=== PATIENT | male | born 1960 | race Caucasian/White ===

== ENCOUNTER 2017-07-12 02:12 | Inpatient (IN) | payer OTHER ==
[2017-07-12] VITALS (8 sets, daily range): BP systolic 87–179; BP diastolic 53–96
[~2017-07-12] VITALS: Ht 177.8 cm; Wt 68.9 kg
[2017-07-12] MEDS ORDERED: MORPHINE SULFATE 4 MG/ML CPJ (NOT FOR IM USE) IV STA (02:31)
[2017-07-12] MEDS ORDERED: SODIUM CHLORIDE 0.9% 1,000 ML IV ONE (02:31)
[2017-07-12] MEDS ORDERED: ONDANSETRON HCL 4MG/2ML VIAL IV STA ×2 (02:31)
[2017-07-12] MEDS ORDERED: ASPIRIN 81MG TABLET PO ONE (02:45)
[2017-07-12] MEDS ORDERED: MECLIZINE 25MG TABLET PO ONE (02:45)
[2017-07-12 02:57] LABS: HEMATOCRIT. 39.7 % (42.0-52.0); HEMOGLOBIN. 13.9 g/dL (14.0-18.0); MEAN CORPUSCULAR HEMOGLOBIN 28.7 pg (28.0-32.0); MEAN CORPUSCULAR VOLUME 82.4 fL (80.0-94.0); MEAN PLATELET VOLUME 8.1 fl (7.4-10.4); PLATELET 151 x1000/uL (130-400); RED BLOOD CELL COUNT 4.82 mill/uL (4.7-6.1); RED CELL DISTRIBUTION WIDTH 18.4 % (11.6-14.6)
[2017-07-12 03:05] LABS: INR 1.2; PARTIAL THROMBOPLASTIN TIME 26.7 sec (23.4-31.0); PROTHROMBIN TIME 12.4 sec (9.4-11.6)
[2017-07-12 03:18] LABS: CARBON DIOXIDE 16 mEq/L (21-32); CHLORIDE 74 mEq/L (98-107); ETHANOL BLOOD < 10 mg/dL; TROPONIN I < 0.02 ng/mL (0.00-0.04)
[2017-07-12] MEDS ORDERED: SODIUM CHLORIDE 0.9% 1000ML BAG (SEPSIS BOLUS) IV NR ×2 (03:45→05:00)
[2017-07-12] MEDS ORDERED: POTASSIUM BICARB/CIT ACID 25 MEQ TABLET.EFF PO NR (03:45)
[2017-07-12] MEDS ORDERED: KCL 20MEQ/100ML PREMIX 100 ML IV NR (03:45)
[2017-07-12] MEDS ORDERED: SODIUM CHLORIDE 0.9% 1,000 ML IV NR (04:04)
[2017-07-12] MEDS ORDERED: LEVOFLOXACIN 750MG PREMIX 150 ML IV NR (05:00)
[2017-07-12] MEDS ORDERED: ONDANSETRON HCL 4MG/2ML VIAL IV PRN ×2 (08:00→08:30)
[2017-07-12 08:05] LABS: PLATELET ESTIMATE NORMAL
[2017-07-12] MEDS ORDERED: SODIUM CHLORIDE 0.9% 1,000 ML IV SCH (08:15)
[2017-07-12] MEDS ORDERED: MAGNESIUM/ALUMINUM HYDROXIDE/SIMETHICONE 30ML UDC PO PRN (08:30)
[2017-07-12] MEDS ORDERED: IPRATROPIUM/ALBUTEROL 0.5-3(2.5)MG/3ML NEB INH PRN (08:30)
[2017-07-12] MEDS ORDERED: CLONIDINE 0.1MG TABLET PO PRN (08:30)
[2017-07-12] MEDS: PANTOPRAZOLE SODIUM 40 MG/VIAL IV SCH ×2 (08:30→21:04)
[2017-07-12] MEDS ORDERED: DOCUSATE SODIUM 100MG CAPSULE PO PRN (08:30)
[2017-07-12] MEDS ORDERED: ACETAMINOPHEN 650MG SUPP PR PRN (08:30)
[2017-07-12] MEDS ORDERED: POTASSIUM CHLORIDE INJ 40 MEQ in DEXT 5% WATER 250 ML IV SCH ×2 (08:30→16:00)
[2017-07-12] MEDS ORDERED: NA PHOS,M-B/NA PHOS,DI-BA ENEMA 118ML PR PRN (08:30)
[2017-07-12] MEDS ORDERED: GUAIFENESIN 200MG/10ML SUGAR FREE UDC PO PRN (08:30)
[2017-07-12] MEDS: LORAZEPAM 2MG/ML CPJ IV PRN (08:31)
[2017-07-12] MEDS: LEVETIRACETAM 500 MG in SODIUM CHLORIDE 0.9% 100 ML IV SCH ×2 (09:09→21:04)
[2017-07-12] MEDS ORDERED: SODIUM BICARBONATE 8.4% 1 MEQ/ML 50ML SYR IV SCH (09:30)
[2017-07-12] MEDS ORDERED: ENOXAPARIN 40MG/0.4ML SYR SUBCUT SCH (10:00)
[2017-07-12 10:55] LABS: CARBON DIOXIDE 20 mEq/L (21-32); CHLORIDE 79 mEq/L (98-107); TROPONIN I 0.16 ng/mL (0.00-0.04)
[2017-07-12] MEDS ORDERED: METOCLOPRAMIDE HCL 10MG/2ML VIAL IV SCH (12:00)
[2017-07-12] MEDS: METOCLOPRAMIDE HCL 10MG/2ML VIAL IV SCH ×3 (12:47→23:50)
[2017-07-12] MEDS: SODIUM CHLORIDE 0.9% INJ 3ML FLUSH IVF SCH (12:55)
[2017-07-12 13:10] LABS: CLARITY URINE CLEAR (CLEAR); COLOR URINE YELLOW (YELLOW); GLUCOSE URINE NEGATIVE (NEGATIVE); KETONES URINE NEGATIVE (NEGATIVE); LEUKOCYTE ESTERASE URINE NEGATIVE (NEGATIVE); NITRITE URINE NEGATIVE (NEGATIVE); OCCULT BLOOD URINE NEGATIVE (NEGATIVE); PH URINE 5.5 (4.5-8.0); PROTEIN URINE NEGATIVE (NEGATIVE); SPECIFIC GRAVITY URINE 1.019 (1.005-1.030); UROBILINOGEN URINE 0.2 E.U./dL (0.2-1.0)
[2017-07-12 13:40] LABS: *BARBITURATES SCREEN URINE NEGATIVE (NEGATIVE); *BENZODIAZEPINES SCREEN URINE NEGATIVE (NEGATIVE); *COCAINE SCREEN URINE NEGATIVE (NEGATIVE); CANNABINOID URINE SCREEN NEGATIVE (NEGATIVE); METHADONE URINE SCREEN NEGATIVE (NEGATIVE); OPIATES URINE SCREEN PRESUMTIVE POSITIVE (NEGATIVE); PHENCYCLIDINE URINE SCREEN NEGATIVE (NEGATIVE)
[2017-07-12 13:51] LABS: *AMPHETAMINES SCREEN URINE NEGATIVE (NEGATIVE)
[2017-07-12] MEDS ORDERED: SODIUM BICARBONATE 8.4% 1 MEQ/ML 50ML SYR IV NR (14:15)
[2017-07-12] MEDS ORDERED: INFLUENZA VIRUS VACCINE 0.5ML SYR IM ONE (14:30)
[2017-07-12] MEDS ORDERED: VANCOMYCIN 1 G PREMIX 200 ML IV NR (15:00)
[2017-07-12] MEDS: MORPHINE SULFATE 15MG TABLET SR PO SCH ×2 (16:03→22:26)
[2017-07-12] MEDS: PIPERACILLIN/TAZ 3.375G PREMIX 50 ML IV SCH ×2 (16:03→21:04)
[2017-07-12 16:35] LABS: CLARITY URINE CLEAR (CLEAR); COLOR URINE YELLOW (YELLOW); GLUCOSE URINE NEGATIVE (NEGATIVE); KETONES URINE NEGATIVE (NEGATIVE); LEUKOCYTE ESTERASE URINE NEGATIVE (NEGATIVE); NITRITE URINE NEGATIVE (NEGATIVE); OCCULT BLOOD URINE NEGATIVE (NEGATIVE); PH URINE 6.5 (4.5-8.0); PROTEIN URINE NEGATIVE (NEGATIVE); SPECIFIC GRAVITY URINE 1.009 (1.005-1.030); UROBILINOGEN URINE 0.2 E.U./dL (0.2-1.0)
[2017-07-12 16:43] LABS: CARBON DIOXIDE 24 mEq/L (21-32); CHLORIDE 84 mEq/L (98-107)
[2017-07-12 19:38] LABS: CARBON DIOXIDE 24 mEq/L (21-32); CHLORIDE 87 mEq/L (98-107)
[2017-07-12] MEDS: DIPHENHYDRAMINE 50MG/ML VIAL IV PRN (22:26)
[2017-07-12] MEDS: DEXT 5%/0.45% NACL 1000ML 1,000 ML IV SCH (23:50)
[2017-07-13] VITALS (11 sets, daily range): BP systolic 90–134; BP diastolic 43–87
[2017-07-13] MEDS ORDERED: POTASSIUM CHLORIDE INJ 40 MEQ in DEXT 5% WATER 250 ML IV NR (01:00)
[2017-07-13] MEDS: METOCLOPRAMIDE HCL 10MG/2ML VIAL IV SCH (05:36)
[2017-07-13] MEDS: PIPERACILLIN/TAZ 3.375G PREMIX 50 ML IV SCH ×4 (05:36→21:59)
[2017-07-13] MEDS: SODIUM CHLORIDE 0.9% INJ 3ML FLUSH IVF SCH ×3 (05:37→23:01)
[2017-07-13 07:23] LABS: BASOPHILS % 0.7 % (0.0-2.0); HEMATOCRIT. 34.8 % (42.0-52.0); LYMPHOCYTES % 13.8 % (20.0-50.0); MEAN CORPUSCULAR HEMOGLOBIN 28.9 pg (28.0-32.0); MEAN CORPUSCULAR VOLUME 84.1 fL (80.0-94.0); MEAN PLATELET VOLUME 9.2 fl (7.4-10.4); MONOCYTES % 5.9 % (2.0-8.0); NEUTROPHILS % 78.6 % (40.0-76.0); PLATELET 93 x1000/uL (130-400); RED BLOOD CELL COUNT 4.14 mill/uL (4.7-6.1); RED CELL DISTRIBUTION WIDTH 18.2 % (11.6-14.6)
[2017-07-13 08:03] LABS: CARBON DIOXIDE 26 mEq/L (21-32); CHLORIDE 94 mEq/L (98-107); CREATINE KINASE 394 IU/L (39-308); PHOSPHORUS 2.4 mg/dL (2.5-4.9)
[2017-07-13] MEDS: LEVETIRACETAM 500 MG in SODIUM CHLORIDE 0.9% 100 ML IV SCH (08:45)
[2017-07-13] MEDS: MORPHINE SULFATE 15MG TABLET SR PO SCH (08:45)
[2017-07-13] MEDS: PANTOPRAZOLE SODIUM 40 MG/VIAL IV SCH ×2 (08:45→20:35)
[2017-07-13] MEDS: POTASSIUM-SODIUM PHOSPHATE POWDER PACKET PO SCH ×2 (10:19→16:06)
[2017-07-13] MEDS: VANCOMYCIN 1 G PREMIX 200 ML IV SCH ×2 (13:26→22:59)
[2017-07-13] MEDS ORDERED: ACETAMINOPHEN WITH CODEINE 300/30MG TABLET PO PRN (15:00)
[2017-07-13 16:45] LABS: CARBON DIOXIDE 25 mEq/L (21-32); CHLORIDE 98 mEq/L (98-107)
[2017-07-13] MEDS: LORAZEPAM 2MG/ML CPJ IV PRN (20:36)
[2017-07-13] MEDS: DIPHENHYDRAMINE 50MG/ML VIAL IV PRN (20:36)
[2017-07-13] MEDS: DEXT 5%/0.45% NACL 1000ML 1,000 ML IV SCH (23:00)
[2017-07-13 23:50] LABS: CARBON DIOXIDE 24 mEq/L (21-32); CHLORIDE 102 mEq/L (98-107)
[2017-07-14] VITALS (7 sets, daily range): BP systolic 104–157; BP diastolic 48–97
[2017-07-14] MEDS: PIPERACILLIN/TAZ 3.375G PREMIX 50 ML IV SCH (04:27)
[2017-07-14] MEDS: SODIUM CHLORIDE 0.9% INJ 3ML FLUSH IVF SCH (05:05)
[2017-07-14] MEDS: VANCOMYCIN 1 G PREMIX 200 ML IV SCH (05:06)
[2017-07-14] MEDS: LORAZEPAM 2MG/ML CPJ IV PRN (06:41)
[2017-07-14 06:58] LABS: BASOPHILS % 0.4 % (0.0-2.0); EOSINOPHILS % 2.3 % (0.0-5.0); HEMATOCRIT. 34.1 % (42.0-52.0); HEMOGLOBIN. 11.6 g/dL (14.0-18.0); MEAN CORPUSCULAR HEMOGLOBIN 28.8 pg (28.0-32.0); MEAN CORPUSCULAR VOLUME 84.5 fL (80.0-94.0); MONOCYTES % 9.1 % (2.0-8.0); NEUTROPHILS % 70.2 % (40.0-76.0); PLATELET 96 x1000/uL (130-400); RED BLOOD CELL COUNT 4.03 mill/uL (4.7-6.1); RED CELL DISTRIBUTION WIDTH 18.3 % (11.6-14.6)
[2017-07-14 07:23] LABS: CARBON DIOXIDE 25 mEq/L (21-32); CHLORIDE 99 mEq/L (98-107); PHOSPHORUS 3.2 mg/dL (2.5-4.9)
[2017-07-14] MEDS: POTASSIUM-SODIUM PHOSPHATE POWDER PACKET PO SCH (08:45)
[2017-07-14] MEDS: PANTOPRAZOLE SODIUM 40 MG/VIAL IV SCH (08:45)
== END 2017-07-14 13:30 | disposition home or self-care (01) | DRG 53 ==
LOC: ER 02:12 → 3WST 04:07 → ENRESERV 04:18 → 3WST 07:18
PROVIDERS: ADMIT Family Medicine; ATTEND Family Medicine
DX: G40.909 Epilepsy, unspecified, not intractable, without status epilepticus (principal); J96.00 Acute respiratory failure, unspecified whether with hypoxia or hypercapnia; E87.1 Hypo-osmolality and hyponatremia; F11.23 Opioid dependence with withdrawal; E87.6 Hypokalemia; F19.10 Other psychoactive substance abuse, uncomplicated; G47.9 Sleep disorder, unspecified; F41.9 Anxiety disorder, unspecified; M54.9 Dorsalgia, unspecified; F17.210 Nicotine dependence, cigarettes, uncomplicated
CPT/HCPCS: 36415; 70450; 71010; 74000; 80053; 80305; 81003; 82533; 82550; 82570; 83036; 83605; 83690; 83735; 83880; 83935; 84100; 84133; 84300; 84443; 84484; 84550; 85025; 85610; 85730; 87040; 87086; 93005; 96361; 96374; 96375; 97162; 97166; 99291; C9113; G0482; J1200; J1953; J1956; J2060; J2270; J2405; J2543; J2765; J3370; J3480; J3490; J7030; J7050; J7060; J8597

== ENCOUNTER 2018-05-28 22:38 | Emergency (ER) | payer MEDICAID ==
[~2018-05-28] VITALS: Ht 180.3 cm; Wt 59.0 kg
[~2018-05-28 22:38] MED LIST: FAMO20TA8 PO; KEPP500 PO; LACT10SO7 PO; NIFE60TA64 PO; THIA100T72 PO
[2018-05-28] MEDS ORDERED: LEVETIRACETAM 500MG PREMIX 100 ML IV ONE (23:45)
[2018-05-29 00:11] LABS: BASOPHILS % 0.4 % (0.0-2.0); EOSINOPHILS % 1.3 % (0.0-5.0); HEMATOCRIT. 41.5 % (42.0-52.0); HEMOGLOBIN. 14.5 g/dL (14.0-18.0); MEAN CORPUSCULAR HEMOGLOBIN 32.1 pg (28.0-32.0); MEAN CORPUSCULAR VOLUME 91.8 fL (80.0-94.0); MEAN PLATELET VOLUME 9.8 fl (7.4-10.4); NEUTROPHILS % 75.3 % (40.0-76.0); PLATELET 168 x1000/uL (130-400); RED BLOOD CELL COUNT 4.53 mill/uL (4.7-6.1); RED CELL DISTRIBUTION WIDTH 13.6 % (11.6-14.6)
[2018-05-29 00:19] LABS: CHLORIDE 103 mEq/L (98-107)
[2018-05-29 00:30] LABS: INR 1.2; PROTHROMBIN TIME 11.7 sec (9.1-11.1)
[2018-05-29] MEDS ORDERED: DIPHENHYDRAMINE 50MG/ML VIAL IV ONE (01:30)
[2018-05-29] MEDS ORDERED: METOCLOPRAMIDE HCL 10MG/2ML VIAL IV ONE (01:30)
[2018-05-29] MEDS ORDERED: SODIUM CHLORIDE 0.9% 1,000 ML IV ONE (01:30)
[2018-05-29 02:29] LABS: CLARITY URINE CLEAR (CLEAR); COLOR URINE YELLOW (YELLOW); KETONES URINE 1+ (NEGATIVE); LEUKOCYTE ESTERASE URINE NEGATIVE (NEGATIVE); NITRITE URINE NEGATIVE (NEGATIVE); OCCULT BLOOD URINE NEGATIVE (NEGATIVE); PROTEIN URINE NEGATIVE (NEGATIVE); SPECIFIC GRAVITY URINE 1.015 (1.005-1.030)
[2018-05-29 02:30] VITALS: BP 148/80
== END 2018-05-29 13:00 | disposition home or self-care (01) ==
LOC: ER 05-29 10:20
DX: E56.9 Vitamin deficiency, unspecified (principal)
CPT/HCPCS: 36415; 70450; 80053; 81003; 85025; 85610; 96365; 96375; 99285; J1953; J2765; J7030

== ENCOUNTER 2019-02-08 13:54 | Emergency (ER) | payer MEDICAID ==
[~2019-02-08] VITALS: Ht 172.7 cm; Wt 50.0 kg
[2019-02-08] MEDS ORDERED: HYDROCODONE/ACETAMINOPHEN 5/325MG TABLET PO STA (14:50)
[2019-02-08] MEDS ORDERED: KETOROLAC 60MG/2ML VIAL IM STA (14:50)
[2019-02-08 14:52] LABS: CLARITY URINE CLEAR (CLEAR); COLOR URINE YELLOW (YELLOW); KETONES URINE NEGATIVE (NEGATIVE); LEUKOCYTE ESTERASE URINE NEGATIVE (NEGATIVE); NITRITE URINE NEGATIVE (NEGATIVE); OCCULT BLOOD URINE NEGATIVE (NEGATIVE); PH URINE 6.5 (4.5-8.0); PROTEIN URINE NEGATIVE (NEGATIVE); SPECIFIC GRAVITY URINE 1.023 (1.005-1.030)
[2019-02-08] MEDS ORDERED: MORPHINE SULFATE 10 MG/ML CPJ IM NR (19:30)
[2019-02-08 19:58] VITALS: BP 148/76
[2019-02-08] MEDS ORDERED: HYDROCODONE/ACETAMINOPHEN 10/325MG TABLET PO ONE (20:30)
== END 2019-02-08 21:53 | disposition home or self-care (01) ==
LOC: ER 13:54
DX: M54.2 Cervicalgia (principal)
CPT/HCPCS: 72050; 72141; 81003; 96372; 99284; J1885; J2270

== ENCOUNTER 2019-03-15 04:35 | Emergency (ER) | payer MEDICAID ==
[~2019-03-15] VITALS: Ht 180.3 cm; Wt 59.0 kg
[2019-03-15] MEDS ORDERED: ONDANSETRON HCL 4MG/2ML INJ IV STA (06:40)
[2019-03-15] MEDS ORDERED: SODIUM CHLORIDE 0.9% 1,000 ML IV ONE (06:40)
[2019-03-15] MEDS ORDERED: MORPHINE SULFATE 4 MG/ML CPJ (NOT FOR IM USE) IV STA (06:40)
[2019-03-15] MEDS ORDERED: LEVETIRACETAM 1000MG/100ML 100 ML IV ONE (06:45)
[2019-03-15 06:51] LABS: BASOPHILS % 0.6 % (0.0-2.0); EOSINOPHILS % 1.1 % (0.0-5.0); HEMATOCRIT. 48.1 % (42.0-52.0); HEMOGLOBIN. 16.4 g/dL (14.0-18.0); LYMPHOCYTES % 12.7 % (20.0-50.0); MEAN CORPUSCULAR VOLUME 90.8 fL (80.0-94.0); MEAN PLATELET VOLUME 9.9 fl (7.4-10.4); MONOCYTES % 4.7 % (2.0-8.0); NEUTROPHILS % 80.9 % (40.0-76.0); PLATELET 139 x1000/uL (130-400); RED BLOOD CELL COUNT 5.29 mill/uL (4.7-6.1); RED CELL DISTRIBUTION WIDTH 14.3 % (11.6-14.6)
[2019-03-15 06:53] LABS: CHLORIDE 111 mEq/L (98-107)
[2019-03-15 06:57] LABS: ETHANOL BLOOD < 10 mg/dL
[2019-03-15 10:58] LABS: CLARITY URINE CLEAR (CLEAR); COLOR URINE YELLOW (YELLOW); KETONES URINE NEGATIVE (NEGATIVE); LEUKOCYTE ESTERASE URINE NEGATIVE (NEGATIVE); NITRITE URINE NEGATIVE (NEGATIVE); OCCULT BLOOD URINE NEGATIVE (NEGATIVE); PROTEIN URINE NEGATIVE (NEGATIVE); SPECIFIC GRAVITY URINE 1.009 (1.005-1.030); UROBILINOGEN URINE 0.2 E.U./dL (0.2-1.0)
[2019-03-15 11:15] LABS: *AMPHETAMINES SCREEN URINE NEGATIVE (NEGATIVE); *BARBITURATES SCREEN URINE NEGATIVE (NEGATIVE); *BENZODIAZEPINES SCREEN URINE NEGATIVE (NEGATIVE)
[2019-03-15 11:16] LABS: *COCAINE SCREEN URINE NEGATIVE (NEGATIVE); CANNABINOID URINE SCREEN NEGATIVE (NEGATIVE); METHADONE URINE SCREEN NEGATIVE (NEGATIVE); OPIATES URINE SCREEN PRESUMTIVE POSITIVE (NEGATIVE); PHENCYCLIDINE URINE SCREEN NEGATIVE (NEGATIVE)
[2019-03-15] MEDS ORDERED: MORPHINE SULFATE 4 MG/ML CPJ (NOT FOR IM USE) IV ONE (12:00)
[2019-03-15 13:45] VITALS: BP 145/81
== END 2019-03-15 14:15 | disposition home or self-care (01) ==
LOC: ER 04:35
DX: G89.29 Other chronic pain (principal); M54.5 Low back pain; M54.2 Cervicalgia; R56.9 Unspecified convulsions; F17.200 Nicotine dependence, unspecified, uncomplicated; Z98.890 Other specified postprocedural states; Z79.899 Other long term (current) drug therapy
CPT/HCPCS: 36415; 70450; 71045; 80053; 80305; 80320; 81003; 85025; 96365; 96375; 96376; 99284; J1953; J2270; J2405; J7030; Z7610; G0480

== ENCOUNTER 2019-03-15 16:48 | Emergency (ER) | payer MEDICAID ==
[~2019-03-15] VITALS: Ht 180.3 cm; Wt 59.0 kg
[2019-03-15] MEDS ORDERED: SODIUM CHLORIDE 0.9% 500 ML IV ONE (20:00)
[2019-03-15] MEDS ORDERED: ONDANSETRON HCL 4MG/2ML INJ IV ONE (20:00)
[2019-03-15] MEDS ORDERED: FAMOTIDINE 20MG/2ML VIAL IV ONE (20:15)
[2019-03-15 20:38] LABS: BASOPHILS % 0.7 % (0.0-2.0); EOSINOPHILS % 0.8 % (0.0-5.0); HEMATOCRIT. 45.2 % (42.0-52.0); HEMOGLOBIN. 15.7 g/dL (14.0-18.0); LYMPHOCYTES % 14.6 % (20.0-50.0); MEAN CORPUSCULAR HEMOGLOBIN 31.6 pg (28.0-32.0); MEAN PLATELET VOLUME 9.6 fl (7.4-10.4); MONOCYTES % 4.8 % (2.0-8.0); NEUTROPHILS % 79.1 % (40.0-76.0); PLATELET 132 x1000/uL (130-400); RED BLOOD CELL COUNT 4.97 mill/uL (4.7-6.1); RED CELL DISTRIBUTION WIDTH 14.2 % (11.6-14.6)
[2019-03-15 20:42] LABS: CHLORIDE 111 mEq/L (98-107)
[2019-03-15 20:44] LABS: INR 1.1; PROTHROMBIN TIME 11.3 sec (9.6-11.0)
[2019-03-15 20:47] LABS: ETHANOL BLOOD < 10 mg/dL
[2019-03-15] MEDS ORDERED: KETOROLAC 30MG/ML VIAL IV ONE (23:00)
[2019-03-16] MEDS ORDERED: HYDROCHLOROTHIAZIDE 25MG TABLET PO ONE (06:15)
[2019-03-16 06:17] VITALS: BP 189/102
== END 2019-03-16 06:31 | disposition home or self-care (01) ==
LOC: ER 18:23 → CANBEDREQ 03-16 07:22
DX: K74.60 Unspecified cirrhosis of liver (principal); R14.0 Abdominal distension (gaseous); F17.200 Nicotine dependence, unspecified, uncomplicated; Z86.73 Personal history of transient ischemic attack (TIA), and cerebral infarction without residual deficits; Z76.5 Malingerer [conscious simulation]; Z98.890 Other specified postprocedural states; Z79.899 Other long term (current) drug therapy
CPT/HCPCS: 36415; 76705; 80053; 80320; 82140; 83690; 84484; 85025; 85610; 86850; 86900; 86901; 96374; 96375; 99284; J1885; J2405; J3490; J7040; J7050; Z7610; G0480

== ENCOUNTER 2019-03-16 07:50 | Inpatient (IN) | payer MEDICAID ==
[~2019-03-16] VITALS: Ht 180.3 cm; Wt 61.4 kg
[2019-03-16] MEDS ORDERED: LORAZEPAM 2MG/ML CPJ IV ONE (08:45)
[2019-03-16] MEDS ORDERED: ONDANSETRON HCL 4MG/2ML INJ IV ONE (08:45)
[2019-03-16 08:46] LABS: BASOPHILS % 0.5 % (0.0-2.0); EOSINOPHILS % 0.5 % (0.0-5.0); HEMATOCRIT. 46.3 % (42.0-52.0); HEMOGLOBIN. 15.7 g/dL (14.0-18.0); LYMPHOCYTES % 13.1 % (20.0-50.0); MEAN CORPUSCULAR HEMOGLOBIN 31.1 pg (28.0-32.0); MEAN CORPUSCULAR VOLUME 91.6 fL (80.0-94.0); MEAN PLATELET VOLUME 9.5 fl (7.4-10.4); MONOCYTES % 4.1 % (2.0-8.0); NEUTROPHILS % 81.8 % (40.0-76.0); PLATELET 146 x1000/uL (130-400); RED BLOOD CELL COUNT 5.05 mill/uL (4.7-6.1); RED CELL DISTRIBUTION WIDTH 14.2 % (11.6-14.6)
[2019-03-16 08:53] LABS: PARTIAL THROMBOPLASTIN TIME 29.9 sec (23.4-31.0); PROTHROMBIN TIME 10.8 sec (9.6-11.0)
[2019-03-16 08:57] LABS: CHLORIDE 110 mEq/L (98-107)
[2019-03-16 09:03] LABS: BG BASE EXCESS -8.7 mmol/L (-2.0-2.0); BG CARBOXYHEMOGLOBIN 1.7 % (0.5-1.5); BG DEOXYHEMOGLOBIN 4.8 % (0.0-5.0); BG FRACTION INSPIRED OXYGEN 21; BG HCO3 ACT 14.3 mmol/L (22.0-26.0); BG METHEMOGLOBIN 0.3 % (0.0-1.5); BG OXYGEN SATURATION 95.1 % (92.0-98.5); BG OXYHEMOGLOBIN 93.2 % (94.0-97.0); BG PH 7.376 (7.350-7.450); BG PO2 78.9 mmHg (75.0-100.0); BG SAMPLE SITE RIGHT RADIAL; BG VENT MODE ROOM AIR
[2019-03-16 09:04] LABS: ETHANOL BLOOD 128 mg/dL
[2019-03-16] MEDS ORDERED: LEVETIRACETAM 500MG TABLET PO ONE (09:15)
[2019-03-16] MEDS ORDERED: MAGNESIUM 2 G PREMIX 50 ML IV ONE (09:15)
[2019-03-16] MEDS ORDERED: FAMOTIDINE 20MG/2ML VIAL IV ONE (09:15)
[2019-03-16] MEDS ORDERED: POTASSIUM CHLORIDE 20MEQ TABLET SR PO ONE (09:15)
[2019-03-16] MEDS ORDERED: HYDROCODONE/ACETAMINOPHEN 5/325MG TABLET PO ONE (10:45)
[2019-03-16 11:23] LABS: CLARITY URINE CLEAR (CLEAR); COLOR URINE YELLOW (YELLOW); KETONES URINE 3+ (NEGATIVE); OCCULT BLOOD URINE NEGATIVE (NEGATIVE); PH URINE 5.5 (4.5-8.0); PROTEIN URINE 1+ (NEGATIVE); SPECIFIC GRAVITY URINE 1.023 (1.005-1.030)
[2019-03-16 11:24] LABS: LEUKOCYTE ESTERASE URINE NEGATIVE (NEGATIVE); NITRITE URINE NEGATIVE (NEGATIVE)
[2019-03-16] MEDS ORDERED: ONDANSETRON HCL 4MG/2ML INJ IV PRN (11:45)
[2019-03-16] MEDS ORDERED: ACETAMINOPHEN 325MG TABLET PO PRN (11:45)
[2019-03-16 13:29] LABS: *AMPHETAMINES SCREEN URINE NEGATIVE (NEGATIVE); *BARBITURATES SCREEN URINE NEGATIVE (NEGATIVE); *BENZODIAZEPINES SCREEN URINE NEGATIVE (NEGATIVE); *COCAINE SCREEN URINE NEGATIVE (NEGATIVE)
[2019-03-16 13:30] LABS: CANNABINOID URINE SCREEN NEGATIVE (NEGATIVE); METHADONE URINE SCREEN NEGATIVE (NEGATIVE); OPIATES URINE SCREEN PRESUMTIVE POSITIVE (NEGATIVE); PHENCYCLIDINE URINE SCREEN NEGATIVE (NEGATIVE)
[2019-03-16 14:30] VITALS: BP 171/88
[2019-03-16] MEDS ORDERED: CHLORDIAZEPOXIDE 25MG CAPSULE PO NR (15:00)
[2019-03-16] MEDS: LORAZEPAM 2MG/ML CPJ IV PRN ×2 (15:31→22:53)
[2019-03-16 20:00] VITALS: BP 154/67
[2019-03-16] MEDS: CHLORDIAZEPOXIDE 25MG CAPSULE PO SCH (21:27)
[2019-03-16] MEDS: LEVETIRACETAM 500MG TABLET PO SCH (21:27)
[2019-03-16] MEDS: MORPHINE SULFATE 2 MG/ML CPJ (NOT FOR IM USE) IV PRN (22:04)
[2019-03-17] VITALS: BP 148/75
[2019-03-17 04:00] VITALS: BP 168/91
[2019-03-17] MEDS: MORPHINE SULFATE 2 MG/ML CPJ (NOT FOR IM USE) IV PRN ×2 (04:36→10:40)
[2019-03-17] MEDS: LORAZEPAM 2MG/ML CPJ IV PRN ×3 (05:25→18:10)
[2019-03-17] MEDS: CHLORDIAZEPOXIDE 25MG CAPSULE PO SCH ×3 (06:09→21:05)
[2019-03-17 06:32] LABS: BASOPHILS % 0.5 % (0.0-2.0); EOSINOPHILS % 1.8 % (0.0-5.0); HEMATOCRIT. 45.4 % (42.0-52.0); HEMOGLOBIN. 15.4 g/dL (14.0-18.0); LYMPHOCYTES % 9.3 % (20.0-50.0); MEAN CORPUSCULAR HEMOGLOBIN 31.5 pg (28.0-32.0); MEAN CORPUSCULAR VOLUME 92.6 fL (80.0-94.0); MEAN PLATELET VOLUME 9.3 fl (7.4-10.4); MONOCYTES % 4.9 % (2.0-8.0); NEUTROPHILS % 83.5 % (40.0-76.0); PLATELET 108 x1000/uL (130-400); RED BLOOD CELL COUNT 4.91 mill/uL (4.7-6.1); RED CELL DISTRIBUTION WIDTH 13.8 % (11.6-14.6)
[2019-03-17 07:08] LABS: CHLORIDE 111 mEq/L (98-107)
[2019-03-17 08:00] VITALS: BP 160/72
[2019-03-17] MEDS: LEVETIRACETAM 500MG TABLET PO SCH ×2 (09:05→20:54)
[2019-03-17] MEDS: NICOTINE 21MG PATCH TD SCH (10:41)
[2019-03-17 12:55] VITALS: BP 147/86
[2019-03-17 16:28] VITALS: BP 168/99
[2019-03-17] MEDS: KETOROLAC 15MG/ML VIAL IV PRN (16:44)
[2019-03-17 20:00] VITALS: BP 138/69
[2019-03-18] VITALS: BP 130/65
[2019-03-18] MEDS: KETOROLAC 15MG/ML VIAL IV PRN ×2 (03:09→09:42)
[2019-03-18] MEDS: LORAZEPAM 2MG/ML CPJ IV PRN ×3 (03:09→20:55)
[2019-03-18 03:36] VITALS: BP 140/72
[2019-03-18] MEDS: CHLORDIAZEPOXIDE 25MG CAPSULE PO SCH ×2 (06:06→14:54)
[2019-03-18 08:00] VITALS: BP 132/72
[2019-03-18] MEDS: NICOTINE 21MG PATCH TD SCH (09:00)
[2019-03-18] MEDS: LEVETIRACETAM 500MG TABLET PO SCH ×2 (09:31→20:10)
[2019-03-18] MEDS: HYDROCODONE/ACETAMINOPHEN 10/325MG TABLET PO PRN ×2 (14:55→20:10)
[2019-03-18 16:00] VITALS: BP 124/69
[2019-03-19] VITALS: BP 116/65
[2019-03-19] MEDS: HYDROCODONE/ACETAMINOPHEN 10/325MG TABLET PO PRN ×5 (00:13→17:29)
[2019-03-19] MEDS: LORAZEPAM 2MG/ML CPJ IV PRN ×3 (04:39→18:21)
[2019-03-19 08:00] VITALS: BP 136/74
[2019-03-19] MEDS: LEVETIRACETAM 500MG TABLET PO SCH ×2 (08:46→21:08)
[2019-03-19] MEDS: NICOTINE 21MG PATCH TD SCH (08:47)
[2019-03-19 12:00] VITALS: BP 132/69
[2019-03-19 16:00] VITALS: BP 127/68
[2019-03-19 20:00] VITALS: BP 154/66
[2019-03-20] VITALS: BP 136/79
[2019-03-20] MEDS: HYDROCODONE/ACETAMINOPHEN 10/325MG TABLET PO PRN ×4 (02:05→20:39)
[2019-03-20 04:00] VITALS: BP 125/67
[2019-03-20] MEDS: LORAZEPAM 2MG/ML CPJ IV PRN ×3 (04:38→22:46)
[2019-03-20 08:14] VITALS: BP 129/60
[2019-03-20] MEDS: LEVETIRACETAM 500MG TABLET PO SCH ×2 (08:42→20:39)
[2019-03-20] MEDS: NICOTINE 21MG PATCH TD SCH (08:44)
[2019-03-20 12:00] VITALS: BP 155/82
[2019-03-20 15:48] VITALS: BP 137/79
[2019-03-20 20:30] VITALS: BP 131/69
[2019-03-21] VITALS: BP 163/88
[2019-03-21 04:00] VITALS: BP 145/64
[2019-03-21] MEDS: HYDROCODONE/ACETAMINOPHEN 10/325MG TABLET PO PRN ×4 (04:15→21:02)
[2019-03-21 08:00] VITALS: BP 119/58
[2019-03-21] MEDS: NICOTINE 21MG PATCH TD SCH (09:00)
[2019-03-21] MEDS: LEVETIRACETAM 500MG TABLET PO SCH ×2 (09:24→20:48)
[2019-03-21 12:00] VITALS: BP 136/56
[2019-03-21 16:00] VITALS: BP 122/61
[2019-03-21] MEDS: ALPRAZOLAM 0.5 MG TABLET PO PRN (16:22)
[2019-03-21 20:00] VITALS: BP 137/72
[2019-03-22 00:23] VITALS: BP 124/73
[2019-03-22] MEDS: ALPRAZOLAM 0.5 MG TABLET PO PRN ×2 (00:52→15:12)
[2019-03-22 04:29] VITALS: BP 123/64
[2019-03-22] MEDS: HYDROCODONE/ACETAMINOPHEN 10/325MG TABLET PO PRN ×3 (05:45→17:56)
[2019-03-22 08:00] VITALS: BP 118/58
[2019-03-22] MEDS: LEVETIRACETAM 500MG TABLET PO SCH ×2 (08:55→21:16)
[2019-03-22] MEDS: NICOTINE 21MG PATCH TD SCH (08:57)
[2019-03-22 12:00] VITALS: BP 117/57
[2019-03-22 16:00] VITALS: BP 110/56
[2019-03-22 20:15] VITALS: BP 127/77
[2019-03-22] MEDS ORDERED: HYDROCODONE/ACETAMINOPHEN 10/325MG TABLET PO PRN (21:00)
[2019-03-22] MEDS: MORPHINE SULFATE 2 MG/ML CPJ (NOT FOR IM USE) IV PRN (21:16)
[2019-03-23] MEDS: ALPRAZOLAM 0.5 MG TABLET PO PRN ×2 (00:06→16:38)
[2019-03-23 00:09] VITALS: BP 126/72
[2019-03-23 04:08] VITALS: BP 111/75
[2019-03-23] MEDS: MORPHINE SULFATE 2 MG/ML CPJ (NOT FOR IM USE) IV PRN ×2 (04:08→09:11)
[2019-03-23 08:00] VITALS: BP 117/71
[2019-03-23] MEDS: NICOTINE 21MG PATCH TD SCH (09:00)
[2019-03-23] MEDS: LEVETIRACETAM 500MG TABLET PO SCH ×2 (09:11→20:25)
[2019-03-23 12:00] VITALS: BP 116/67
[2019-03-23] MEDS: HYDROCODONE/ACETAMINOPHEN 10/325MG TABLET PO PRN ×2 (15:09→20:26)
[2019-03-23 16:00] VITALS: BP 118/64
[2019-03-23 20:00] VITALS: BP 122/56
[2019-03-24] VITALS: BP 128/65
[2019-03-24] MEDS: HYDROCODONE/ACETAMINOPHEN 10/325MG TABLET PO PRN ×4 (00:38→20:24)
[2019-03-24 04:00] VITALS: BP 122/63
[2019-03-24 08:00] VITALS: BP 143/67
[2019-03-24] MEDS: LEVETIRACETAM 500MG TABLET PO SCH ×2 (08:18→20:24)
[2019-03-24] MEDS: NICOTINE 21MG PATCH TD SCH (09:00)
[2019-03-24 12:00] VITALS: BP 135/80
[2019-03-24] MEDS: ALPRAZOLAM 0.5 MG TABLET PO PRN ×2 (12:37→23:51)
[2019-03-24 16:00] VITALS: BP 125/73
[2019-03-24 20:00] VITALS: BP 133/75
[2019-03-25] VITALS (7 sets, daily range): BP systolic 120–145; BP diastolic 67–80
[2019-03-25] MEDS: HYDROCODONE/ACETAMINOPHEN 10/325MG TABLET PO PRN ×3 (06:34→17:37)
[2019-03-25] MEDS: NICOTINE 21MG PATCH TD SCH (09:00)
[2019-03-25] MEDS: LEVETIRACETAM 500MG TABLET PO SCH ×2 (09:04→21:16)
[2019-03-25] MEDS: ALPRAZOLAM 0.5 MG TABLET PO PRN (21:16)
[2019-03-26] VITALS: BP 118/71
[2019-03-26] MEDS: HYDROCODONE/ACETAMINOPHEN 10/325MG TABLET PO PRN ×5 (00:24→20:00)
[2019-03-26 04:00] VITALS: BP 125/76
[2019-03-26 08:00] VITALS: BP 111/67
[2019-03-26] MEDS: NICOTINE 21MG PATCH TD SCH (09:00)
[2019-03-26] MEDS: LEVETIRACETAM 500MG TABLET PO SCH ×2 (09:13→21:10)
[2019-03-26 12:00] VITALS: BP 123/72
[2019-03-26 16:00] VITALS: BP 120/68
[2019-03-26 20:00] VITALS: BP 137/67
[2019-03-26] MEDS: ALPRAZOLAM 0.5 MG TABLET PO PRN (21:10)
[2019-03-27] VITALS (7 sets, daily range): BP systolic 124–145; BP diastolic 64–79
[2019-03-27] MEDS: HYDROCODONE/ACETAMINOPHEN 10/325MG TABLET PO PRN ×2 (00:34→08:04)
[2019-03-27] MEDS: MORPHINE SULFATE 2 MG/ML CPJ (NOT FOR IM USE) IV PRN ×4 (03:17→23:28)
[2019-03-27] MEDS: LEVETIRACETAM 500MG TABLET PO SCH ×2 (08:04→21:12)
[2019-03-27] MEDS: NICOTINE 21MG PATCH TD SCH (08:19)
[2019-03-27] MEDS: ALPRAZOLAM 0.5 MG TABLET PO PRN (19:42)
[2019-03-28 04:00] VITALS: BP 128/66
[2019-03-28] MEDS: MORPHINE SULFATE 2 MG/ML CPJ (NOT FOR IM USE) IV PRN ×2 (05:53→10:01)
[2019-03-28 08:00] VITALS: BP 141/72
[2019-03-28] MEDS: NICOTINE 21MG PATCH TD SCH (09:00)
[2019-03-28] MEDS: LEVETIRACETAM 500MG TABLET PO SCH ×2 (09:40→20:43)
[2019-03-28] MEDS ORDERED: ONDANSETRON HCL 4MG TABLET PO PRN (15:15)
[2019-03-28] MEDS ORDERED: HYDROCODONE/ACETAMINOPHEN 10/325MG TABLET PO NR (15:30)
[2019-03-28 16:04] VITALS: BP 141/72
[2019-03-28 20:27] VITALS: BP 150/77
== END 2019-03-28 21:00 | DRG 425 ==
LOC: ER 07:50 → 8WST 10:45 → EDBEDREQSVC 10:54 → EDBEDREQ 10:54 → ENRESERV 15:36
PROVIDERS: ADMIT Internal Medicine; ATTEND Internal Medicine
DX: E87.6 Hypokalemia (principal); E87.2 Acidosis; K74.60 Unspecified cirrhosis of liver; E87.8 Other disorders of electrolyte and fluid balance, not elsewhere classified; Y90.6 Blood alcohol level of 120-199 mg/100 ml; F10.129 Alcohol abuse with intoxication, unspecified; F41.9 Anxiety disorder, unspecified; G40.909 Epilepsy, unspecified, not intractable, without status epilepticus; F17.210 Nicotine dependence, cigarettes, uncomplicated; Z86.73 Personal history of transient ischemic attack (TIA), and cerebral infarction without residual deficits; Z88.9 Allergy status to unspecified drugs, medicaments and biological substances; Z76.5 Malingerer [conscious simulation]
CPT/HCPCS: 36415; 36600; 71045; 74176; 80048; 80305; 80320; 82375; 82805; 83605; 83880; 84145; 84484; 86850; 86900; 93005; 93970; 97110; 97116; 97162; 99285; C1893; J1885; J2060; J2270; J2405; J3475; J3490; G0480

== ENCOUNTER 2019-05-20 11:16 | Inpatient (IN) | payer MEDICAID ==
[~2019-05-20] VITALS: Ht 157.5 cm; Wt 45.4 kg
[2019-05-20] MEDS ORDERED: HYDROCODONE/ACETAMINOPHEN 5/325MG TABLET PO ONE (13:15)
[2019-05-20 13:34] LABS: CHLORIDE 105 mEq/L (98-107)
[2019-05-20 13:36] LABS: BASOPHILS % 0.5 % (0.0-2.0); HEMATOCRIT. 48.5 % (42.0-52.0); HEMOGLOBIN. 16.9 g/dL (14.0-18.0); LYMPHOCYTES % 18.8 % (20.0-50.0); MEAN CORPUSCULAR HEMOGLOBIN 31.6 pg (28.0-32.0); MEAN CORPUSCULAR VOLUME 90.9 fL (80.0-94.0); MEAN PLATELET VOLUME 9.9 fl (7.4-10.4); MONOCYTES % 4.3 % (2.0-8.0); NEUTROPHILS % 75.4 % (40.0-76.0); PLATELET 138 x1000/uL (130-400); RED BLOOD CELL COUNT 5.34 mill/uL (4.7-6.1); RED CELL DISTRIBUTION WIDTH 13.2 % (11.6-14.6)
[2019-05-20 13:38] LABS: ETHANOL BLOOD < 10 mg/dL
[2019-05-20] MEDS ORDERED: OXYCODONE HCL 5MG TABLET PO ONE (14:45)
[2019-05-20] MEDS ORDERED: MORPHINE SULFATE 4 MG/ML CPJ (NOT FOR IM USE) IV ONE (17:15)
[2019-05-20] MEDS ORDERED: LEVETIRACETAM 500MG TABLET PO ONE (19:30)
[2019-05-20] MEDS ORDERED: LORAZEPAM 1MG TABLET PO ONE (19:30)
[2019-05-20] MEDS ORDERED: IPRATROPIUM/ALBUTEROL 0.5-3(2.5)MG/3ML NEB INH PRN (19:45)
[2019-05-20] MEDS ORDERED: NIFEDIPINE XL 60MG TAB PO SCH (19:45)
[2019-05-20] MEDS ORDERED: MAGNESIUM/ALUMINUM HYDROXIDE/SIMETHICONE 30ML UDC PO PRN (19:45)
[2019-05-20] MEDS ORDERED: CLONIDINE 0.1MG TABLET PO PRN (19:45)
[2019-05-20] MEDS ORDERED: DOCUSATE SODIUM 100MG CAPSULE PO PRN (19:45)
[2019-05-20] MEDS ORDERED: NITROGLYCERIN 0.4MG TABLET SL SL PRN (19:45)
[2019-05-20] MEDS ORDERED: ONDANSETRON HCL 4MG/2ML INJ IV PRN (19:45)
[2019-05-20] MEDS ORDERED: ENOXAPARIN 40MG/0.4ML SYR SUBCUT SCH (19:45)
[2019-05-20] MEDS ORDERED: GUAIFENESIN 200MG/10ML SUGAR FREE UDC PO PRN (19:45)
[2019-05-20] MEDS ORDERED: BUTALBITAL/ACETAMINOPHEN/CAFFEINE 50/325/40MG TABLET PO PRN (20:00)
[2019-05-20] MEDS ORDERED: ZOLPIDEM TARTRATE 5MG TABLET PO PRN (21:00)
[2019-05-20] MEDS ORDERED: LEVETIRACETAM 500MG TABLET PO SCH (21:00)
[2019-05-20] MEDS ORDERED: FAMOTIDINE 20MG TABLET PO SCH (21:00)
[2019-05-20] MEDS: GABAPENTIN 100MG CAPSULE PO SCH (22:00)
[2019-05-21] MEDS: KETOROLAC 15MG/ML VIAL IV PRN ×3 (00:55→14:39)
[2019-05-21] MEDS: GABAPENTIN 100MG CAPSULE PO SCH (06:00)
[2019-05-21 09:00] VITALS: BP 140/76
[2019-05-21] MEDS: ASPIRIN 81MG EC TABLET PO SCH (09:00)
[2019-05-21] MEDS: FAMOTIDINE 20MG TABLET PO SCH ×2 (09:00→23:01)
[2019-05-21] MEDS: ENOXAPARIN 40MG/0.4ML SYR SUBCUT SCH (09:00)
[2019-05-21] MEDS: LEVETIRACETAM 500MG TABLET PO SCH ×2 (10:16→23:01)
[2019-05-21] MEDS: NIFEDIPINE XL 60MG TAB PO SCH (10:16)
[2019-05-21 12:00] VITALS: BP 134/77
[2019-05-21] MEDS ORDERED: GABAPENTIN 100MG CAPSULE PO SCH (14:00)
[2019-05-21] MEDS: ACETAMINOPHEN 325MG TABLET PO PRN (18:05)
[2019-05-21] MEDS: LORAZEPAM 0.5MG TABLET PO PRN (18:15)
[2019-05-21 20:00] VITALS: BP 106/71
[2019-05-22] VITALS: BP 109/65
[2019-05-22] MEDS: LORAZEPAM 0.5MG TABLET PO PRN ×3 (00:02→16:31)
[2019-05-22] MEDS: ACETAMINOPHEN 325MG TABLET PO PRN ×5 (00:02→20:14)
[2019-05-22 08:00] VITALS: BP 124/70
[2019-05-22] MEDS: LEVETIRACETAM 500MG TABLET PO SCH ×2 (09:07→20:21)
[2019-05-22] MEDS: ENOXAPARIN 40MG/0.4ML SYR SUBCUT SCH (09:07)
[2019-05-22] MEDS: FAMOTIDINE 20MG TABLET PO SCH ×2 (09:07→20:21)
[2019-05-22] MEDS: NIFEDIPINE XL 60MG TAB PO SCH (09:12)
[2019-05-22] MEDS: ASPIRIN 81MG EC TABLET PO SCH (09:12)
[2019-05-22] MEDS: KETOROLAC 15MG/ML VIAL IV PRN ×3 (09:20→23:04)
[2019-05-22 12:33] VITALS: BP 115/52
[2019-05-22 16:00] VITALS: BP 131/71
[2019-05-22 20:00] VITALS: BP 102/71
[2019-05-23] VITALS: BP 105/65
[2019-05-23 04:00] VITALS: BP 122/69
[2019-05-23] MEDS: KETOROLAC 15MG/ML VIAL IV PRN ×2 (05:14→09:45)
[2019-05-23 08:00] VITALS: BP 135/67
[2019-05-23] MEDS: ASPIRIN 81MG EC TABLET PO SCH (08:18)
[2019-05-23] MEDS: FAMOTIDINE 20MG TABLET PO SCH (08:18)
[2019-05-23] MEDS: ENOXAPARIN 40MG/0.4ML SYR SUBCUT SCH (08:19)
[2019-05-23] MEDS: LEVETIRACETAM 500MG TABLET PO SCH (08:19)
[2019-05-23] MEDS: NIFEDIPINE XL 60MG TAB PO SCH (08:24)
[2019-05-23 10:14] VITALS: BP 135/67
[2019-05-23] MEDS ORDERED: IBUPROFEN 400MG TABLET PO PRN (10:15)
[2019-05-23 12:00] VITALS: BP 133/75
[2019-05-23] MEDS: ACETAMINOPHEN 325MG TABLET PO PRN ×2 (12:20→17:04)
== END 2019-05-23 16:45 | disposition home or self-care (01) | DRG 347 ==
LOC: ER 11:16 → EDBEDREQ 19:11 → 6EST 19:16 → EDBEDREQ 19:19 → ENRESERV 05-21 07:03
PROVIDERS: ADMIT Internal Medicine; ATTEND Internal Medicine
DX: M54.2 Cervicalgia (principal); K74.60 Unspecified cirrhosis of liver; F41.9 Anxiety disorder, unspecified; R51 Headache; G40.909 Epilepsy, unspecified, not intractable, without status epilepticus; G89.29 Other chronic pain; I10 Essential (primary) hypertension; Z86.73 Personal history of transient ischemic attack (TIA), and cerebral infarction without residual deficits; Z79.899 Other long term (current) drug therapy
CPT/HCPCS: 36415; 80061; 80320; 83036; 93970; 96374; 99285; J1650; J1885; J2270; G0480

== ENCOUNTER 2019-06-03 06:31 | Inpatient (IN) | payer MEDICAID ==
[~2019-06-03] VITALS: Ht 180.3 cm; Wt 54.0 kg
[2019-06-03] MEDS ORDERED: MORPHINE SULFATE 4 MG/ML CPJ (NOT FOR IM USE) IV STA (06:55)
[2019-06-03] MEDS ORDERED: FAMOTIDINE 20MG/2ML VIAL IV STA (06:55)
[2019-06-03] MEDS ORDERED: ONDANSETRON HCL 4MG/2ML INJ IV STA (06:55)
[2019-06-03] MEDS ORDERED: SODIUM CHLORIDE 0.9% 1,000 ML IV ONE (06:55)
[2019-06-03 07:54] LABS: BASOPHILS % 0.8 % (0.0-2.0); EOSINOPHILS % 2.1 % (0.0-5.0); HEMOGLOBIN. 13.7 g/dL (14.0-18.0); LYMPHOCYTES % 22.6 % (20.0-50.0); MEAN CORPUSCULAR HEMOGLOBIN 31.9 pg (28.0-32.0); MEAN CORPUSCULAR VOLUME 91.2 fL (80.0-94.0); MEAN PLATELET VOLUME 10.7 fl (7.4-10.4); MONOCYTES % 5.5 % (2.0-8.0); PLATELET 144 x1000/uL (130-400); RED BLOOD CELL COUNT 4.28 mill/uL (4.7-6.1); RED CELL DISTRIBUTION WIDTH 13.7 % (11.6-14.6)
[2019-06-03 08:00] VITALS: BP 165/82
[2019-06-03 08:02] LABS: CHLORIDE 110 mEq/L (98-107); INR 1.1; PROTHROMBIN TIME 10.8 sec (9.6-11.0)
[2019-06-03 08:06] LABS: ETHANOL BLOOD < 10 mg/dL
[2019-06-03] MEDS ORDERED: LORAZEPAM 2MG/ML CPJ IV ONE (08:30)
[2019-06-03] MEDS ORDERED: HYDROCODONE/ACETAMINOPHEN 5/325MG TABLET PO PRN (08:45)
[2019-06-03] MEDS ORDERED: MAGNESIUM/ALUMINUM HYDROXIDE/SIMETHICONE 30ML UDC PO PRN (08:45)
[2019-06-03] MEDS ORDERED: ACETAMINOPHEN 325MG TABLET PO PRN (08:45)
[2019-06-03] MEDS ORDERED: DOCUSATE SODIUM 100MG CAPSULE PO PRN (08:45)
[2019-06-03] MEDS ORDERED: LEVOFLOXACIN 500MG PREMIX 100 ML IV SCH (08:45)
[2019-06-03] MEDS ORDERED: GUAIFENESIN 200MG/10ML SUGAR FREE UDC PO PRN (08:45)
[2019-06-03] MEDS ORDERED: NA PHOS,M-B/NA PHOS,DI-BA ENEMA 118ML PR PRN (08:45)
[2019-06-03] MEDS ORDERED: DIPHENHYDRAMINE 50MG/ML VIAL IV PRN (08:45)
[2019-06-03 09:51] LABS: CLARITY URINE CLEAR (CLEAR); COLOR URINE YELLOW (YELLOW); KETONES URINE NEGATIVE (NEGATIVE); LEUKOCYTE ESTERASE URINE NEGATIVE (NEGATIVE); NITRITE URINE NEGATIVE (NEGATIVE); OCCULT BLOOD URINE NEGATIVE (NEGATIVE); PH URINE 5.5 (4.5-8.0); PROTEIN URINE NEGATIVE (NEGATIVE); UROBILINOGEN URINE 0.2 E.U./dL (0.2-1.0)
[2019-06-03 10:26] LABS: *BARBITURATES SCREEN URINE NEGATIVE (NEGATIVE); *BENZODIAZEPINES SCREEN URINE NEGATIVE (NEGATIVE); *COCAINE SCREEN URINE NEGATIVE (NEGATIVE)
[2019-06-03 10:28] LABS: *AMPHETAMINES SCREEN URINE NEGATIVE (NEGATIVE); CANNABINOID URINE SCREEN NEGATIVE (NEGATIVE); METHADONE URINE SCREEN NEGATIVE (NEGATIVE); OPIATES URINE SCREEN PRESUMTIVE POSITIVE (NEGATIVE); PHENCYCLIDINE URINE SCREEN NEGATIVE (NEGATIVE)
[2019-06-03 10:30] VITALS: BP 165/82
[2019-06-03] MEDS: MORPHINE SULFATE 2 MG/ML CPJ (NOT FOR IM USE) IV PRN ×3 (11:49→22:17)
[2019-06-03] MEDS: LORAZEPAM 2MG/ML CPJ IV PRN ×2 (13:29→17:45)
[2019-06-03] MEDS ORDERED: METRONIDAZOLE 500 MG PREMIX 100 ML IV SCH (14:00)
[2019-06-03] MEDS ORDERED: ALPR0.5T MT (14:07)
[2019-06-03] MEDS: SODIUM CHLORIDE 0.45% 1,000 ML IV SCH (15:20)
[2019-06-03] MEDS: ENOXAPARIN 40MG/0.4ML SYR SUBCUT SCH (15:20)
[2019-06-03] MEDS: LEVOFLOXACIN 500MG PREMIX 100 ML IV SCH (15:26)
[2019-06-03 16:00] VITALS: BP 148/80
[2019-06-03 16:22] LABS: CHLORIDE 112 mEq/L (98-107)
[2019-06-03] MEDS: METRONIDAZOLE 500 MG PREMIX 100 ML IV SCH ×2 (16:33→22:18)
[2019-06-03] MEDS: LEVETIRACETAM 500MG TABLET PO SCH (17:50)
[2019-06-03] MEDS: HYDROCODONE/ACETAMINOPHEN 10/325MG TABLET PO PRN (19:41)
[2019-06-03 20:00] VITALS: BP 145/82
[2019-06-03] MEDS: CLONIDINE 0.1MG TABLET PO PRN (22:16)
[2019-06-04] VITALS: BP 157/75
[2019-06-04] MEDS: HYDROCODONE/ACETAMINOPHEN 10/325MG TABLET PO PRN ×4 (01:51→22:38)
[2019-06-04] MEDS: LORAZEPAM 2MG/ML CPJ IV PRN ×4 (03:17→20:20)
[2019-06-04] MEDS: SODIUM CHLORIDE 0.45% 1,000 ML IV SCH ×4 (03:19→20:36)
[2019-06-04 04:00] VITALS: BP 182/91
[2019-06-04] MEDS: METRONIDAZOLE 500 MG PREMIX 100 ML IV SCH ×3 (05:17→22:35)
[2019-06-04] MEDS: CLONIDINE 0.1MG TABLET PO PRN ×2 (05:19→20:34)
[2019-06-04] MEDS: MORPHINE SULFATE 2 MG/ML CPJ (NOT FOR IM USE) IV PRN ×3 (05:19→20:20)
[2019-06-04 07:55] LABS: BASOPHILS % 0.5 % (0.0-2.0); EOSINOPHILS % 2.6 % (0.0-5.0); HEMATOCRIT. 39.5 % (42.0-52.0); HEMOGLOBIN. 13.8 g/dL (14.0-18.0); LYMPHOCYTES % 19.5 % (20.0-50.0); MEAN CORPUSCULAR HEMOGLOBIN 31.6 pg (28.0-32.0); MEAN CORPUSCULAR VOLUME 90.2 fL (80.0-94.0); MEAN PLATELET VOLUME 10.3 fl (7.4-10.4); MONOCYTES % 5.8 % (2.0-8.0); NEUTROPHILS % 71.6 % (40.0-76.0); PLATELET 112 x1000/uL (130-400); RED BLOOD CELL COUNT 4.38 mill/uL (4.7-6.1); RED CELL DISTRIBUTION WIDTH 13.3 % (11.6-14.6)
[2019-06-04 07:59] LABS: CHLORIDE 113 mEq/L (98-107)
[2019-06-04 08:11] LABS: HDL CHOLESTEROL 29 mg/dL (40-59); LDL CHOLESTEROL 69 mg/dL (5-100)
[2019-06-04] MEDS: LEVETIRACETAM 500MG TABLET PO SCH ×2 (08:37→17:39)
[2019-06-04] MEDS: ENOXAPARIN 40MG/0.4ML SYR SUBCUT SCH (08:40)
[2019-06-04 10:14] VITALS: BP 157/81
[2019-06-04] MEDS: LEVOFLOXACIN 500MG PREMIX 100 ML IV SCH (10:41)
[2019-06-04] MEDS: ONDANSETRON HCL 4MG/2ML INJ IV PRN (10:50)
[2019-06-04 20:00] VITALS: BP 162/84
[2019-06-04 21:25] VITALS: BP 124/68
[2019-06-05] VITALS: BP 127/64
[2019-06-05] MEDS: MORPHINE SULFATE 2 MG/ML CPJ (NOT FOR IM USE) IV PRN ×3 (01:50→17:30)
[2019-06-05] MEDS: LORAZEPAM 2MG/ML CPJ IV PRN (03:01)
[2019-06-05] MEDS: HYDROCODONE/ACETAMINOPHEN 10/325MG TABLET PO PRN ×2 (05:39→13:28)
[2019-06-05] MEDS: METRONIDAZOLE 500 MG PREMIX 100 ML IV SCH ×2 (05:42→15:20)
[2019-06-05] MEDS: SODIUM CHLORIDE 0.45% 1,000 ML IV SCH ×2 (05:46→11:30)
[2019-06-05 08:00] VITALS: BP 169/88
[2019-06-05] MEDS: LEVETIRACETAM 500MG TABLET PO SCH ×2 (08:54→17:27)
[2019-06-05] MEDS: ENOXAPARIN 40MG/0.4ML SYR SUBCUT SCH (08:55)
[2019-06-05] MEDS: LEVOFLOXACIN 500MG PREMIX 100 ML IV SCH (11:00)
[2019-06-05 12:00] VITALS: BP 170/89
[2019-06-05] MEDS: ONDANSETRON HCL 4MG/2ML INJ IV PRN (13:34)
[2019-06-05 18:29] VITALS: BP 165/81
== END 2019-06-05 19:05 | disposition home or self-care (01) | DRG 249 ==
LOC: ER 06:31 → 6EST 09:02 → EDBEDREQ 09:05 → EDBEDREQTM 09:05 → ENRESERV 10:08
PROVIDERS: ADMIT Internal Medicine; ATTEND Internal Medicine
DX: K52.9 Noninfective gastroenteritis and colitis, unspecified (principal); R65.10 Systemic inflammatory response syndrome (SIRS) of non-infectious origin without acute organ dysfunction; K70.30 Alcoholic cirrhosis of liver without ascites; M48.55XA Collapsed vertebra, not elsewhere classified, thoracolumbar region, initial encounter for fracture; E86.0 Dehydration; I10 Essential (primary) hypertension; Z79.899 Other long term (current) drug therapy; F17.210 Nicotine dependence, cigarettes, uncomplicated; R74.0 Nonspecific elevation of levels of transaminase and lactic acid dehydrogenase [LDH]; F41.9 Anxiety disorder, unspecified; G40.909 Epilepsy, unspecified, not intractable, without status epilepticus; K80.20 Calculus of gallbladder without cholecystitis without obstruction; Z76.5 Malingerer [conscious simulation]; Z71.6 Tobacco abuse counseling
CPT/HCPCS: 36415; 71045; 74176; 80048; 80061; 80305; 80320; 81003; 84484; 93005; 99285; 99406; J1650; J1956; J2060; J2270; J2405; J3490; J7030; G0480

== ENCOUNTER 2019-06-24 12:22 | Inpatient (IN) | payer MEDICAID ==
[~2019-06-24] VITALS: Ht 175.3 cm; Wt 57.6 kg
[~2019-06-24 12:22] MED LIST changes: +ALPR0.5T MT
[2019-06-24] MEDS ORDERED: ONDANSETRON HCL 4MG/2ML INJ IV STA ×2 (12:41→14:22)
[2019-06-24] MEDS ORDERED: SODIUM CHLORIDE 0.9% 1,000 ML IV ONE ×2 (12:41→14:30)
[2019-06-24] MEDS ORDERED: PANTOPRAZOLE SODIUM 40 MG/VIAL IV ONE (12:45)
[2019-06-24] MEDS ORDERED: MORPHINE SULFATE 4 MG/ML CPJ (NOT FOR IM USE) IV ONE (13:00)
[2019-06-24 13:52] LABS: HEMATOCRIT. 39.3 % (42.0-52.0); HEMOGLOBIN. 13.8 g/dL (14.0-18.0); MEAN CORPUSCULAR HEMOGLOBIN 30.9 pg (28.0-32.0); MEAN PLATELET VOLUME 10.5 fl (7.4-10.4); PLATELET 196 x1000/uL (130-400); RED BLOOD CELL COUNT 4.47 mill/uL (4.7-6.1); RED CELL DISTRIBUTION WIDTH 13.9 % (11.6-14.6)
[2019-06-24 13:55] LABS: INR 1.2; PROTHROMBIN TIME 12.1 sec (9.6-11.0)
[2019-06-24 14:16] LABS: CHLORIDE 88 mEq/L (98-107)
[2019-06-24] MEDS ORDERED: MORPHINE SULFATE 4 MG/ML CPJ (NOT FOR IM USE) IV STA (14:22)
[2019-06-24] MEDS ORDERED: PIPERACILLIN/TAZOBACTAM 3.375GM/50ML PREMIX IV ONE (14:30)
[2019-06-24] MEDS ORDERED: OCTREOTIDE 1,000 MCG in SODIUM CHLORIDE 0.9% 98 ML IV ONE ×2 (14:30→14:45)
[2019-06-24 14:36] LABS: PLATELET ESTIMATE NORMAL
[2019-06-24] MEDS ORDERED: MAGNESIUM/ALUMINUM HYDROXIDE/SIMETHICONE 30ML UDC PO PRN (15:30)
[2019-06-24] MEDS ORDERED: DOCUSATE SODIUM 100MG CAPSULE PO PRN (15:30)
[2019-06-24] MEDS ORDERED: IPRATROPIUM/ALBUTEROL 0.5-3(2.5)MG/3ML NEB HHN PRN (15:30)
[2019-06-24] MEDS ORDERED: CLONIDINE 0.1MG TABLET PO PRN (15:30)
[2019-06-24] MEDS ORDERED: GUAIFENESIN 200MG/10ML SUGAR FREE UDC PO PRN (15:30)
[2019-06-24] MEDS ORDERED: NITROGLYCERIN 0.4MG TABLET SL SL PRN (15:30)
[2019-06-24 16:39] VITALS: BP 124/72
[2019-06-24 16:49] LABS: CLARITY URINE CLEAR (CLEAR); COLOR URINE YELLOW (YELLOW); KETONES URINE TRACE (NEGATIVE); LEUKOCYTE ESTERASE URINE NEGATIVE (NEGATIVE); NITRITE URINE NEGATIVE (NEGATIVE); OCCULT BLOOD URINE NEGATIVE (NEGATIVE); PH URINE 5.5 (4.5-8.0); PROTEIN URINE NEGATIVE (NEGATIVE); SPECIFIC GRAVITY URINE 1.011 (1.005-1.030); UROBILINOGEN URINE 0.2 E.U./dL (0.2-1.0)
[2019-06-24] MEDS: SUCRALFATE 1 G/10 ML UDC PO SCH ×2 (16:50→21:54)
[2019-06-24] MEDS ORDERED: IOHEXOL-300 100 ML BOTTLE ONE (16:56)
[2019-06-24 17:31] LABS: *AMPHETAMINES SCREEN URINE NEGATIVE (NEGATIVE); *BARBITURATES SCREEN URINE NEGATIVE (NEGATIVE); *BENZODIAZEPINES SCREEN URINE NEGATIVE (NEGATIVE)
[2019-06-24 17:32] LABS: *COCAINE SCREEN URINE NEGATIVE (NEGATIVE); CANNABINOID URINE SCREEN NEGATIVE (NEGATIVE); METHADONE URINE SCREEN NEGATIVE (NEGATIVE); OPIATES URINE SCREEN PRESUMTIVE POSITIVE (NEGATIVE); PHENCYCLIDINE URINE SCREEN NEGATIVE (NEGATIVE)
[2019-06-24 18:00] VITALS: BP 130/76
[2019-06-24] MEDS ORDERED: MVI, ADULT NO.1 10 ML, FOLIC ACID 1 MG, THIAMINE HCL 100 MG in SODIUM CHLORIDE 0.9% 1,0... IV NR ×4 (18:00)
[2019-06-24] MEDS: LORAZEPAM 2MG/ML CPJ IV PRN (18:04)
[2019-06-24] MEDS: PANTOPRAZOLE SODIUM 40 MG/VIAL IV SCH (18:04)
[2019-06-24] MEDS: KETOROLAC 15MG/ML VIAL IV PRN ×2 (18:10→23:52)
[2019-06-24] MEDS ORDERED: CEFTRIAXONE 1 G PREMIX 50 ML IV SCH (18:30)
[2019-06-24 20:00] VITALS: BP 115/68
[2019-06-24 21:13] LABS: ETHANOL BLOOD < 10 mg/dL
[2019-06-24 21:19] LABS: T4 FREE 1.43 ng/dL (0.76-1.46)
[2019-06-24 22:00] VITALS: BP 127/72
[2019-06-24] MEDS: ONDANSETRON HCL 4MG/2ML INJ IV PRN (22:27)
[2019-06-24] MEDS: ZOLPIDEM TARTRATE 5MG TABLET PO PRN (22:30)
[2019-06-25] VITALS (12 sets, daily range): BP systolic 98–145; BP diastolic 52–68
[2019-06-25] MEDS: SODIUM CHLORIDE 0.9% 1,000 ML IV SCH ×4 (01:21→21:06)
[2019-06-25] MEDS: LORAZEPAM 2MG/ML CPJ IV PRN ×4 (01:28→17:28)
[2019-06-25] MEDS: ONDANSETRON HCL 4MG/2ML INJ IV PRN ×4 (04:23→21:06)
[2019-06-25] MEDS: PANTOPRAZOLE SODIUM 40 MG/VIAL IV SCH ×2 (05:06→17:06)
[2019-06-25] MEDS: SUCRALFATE 1 G/10 ML UDC PO SCH ×4 (06:28→21:06)
[2019-06-25] MEDS: KETOROLAC 15MG/ML VIAL IV PRN ×3 (06:28→18:10)
[2019-06-25 06:44] LABS: HEMATOCRIT. 34.1 % (42.0-52.0); HEMOGLOBIN. 11.8 g/dL (14.0-18.0); MEAN CORPUSCULAR HEMOGLOBIN 31.1 pg (28.0-32.0); MEAN CORPUSCULAR VOLUME 89.6 fL (80.0-94.0); MEAN PLATELET VOLUME 10.6 fl (7.4-10.4); PLATELET 95 x1000/uL (130-400)
[2019-06-25 06:53] LABS: CHLORIDE 113 mEq/L (98-107)
[2019-06-25] MEDS: ACETAMINOPHEN 325MG TABLET PO PRN (08:05)
[2019-06-25 19:08] LABS: PLATELET ESTIMATE DECREASED
[2019-06-25] MEDS: CEFTRIAXONE 1 G PREMIX 50 ML IV SCH (21:06)
[2019-06-26] VITALS (12 sets, daily range): BP systolic 130–168; BP diastolic 64–87
[2019-06-26] MEDS: ONDANSETRON HCL 4MG/2ML INJ IV PRN ×3 (01:13→16:05)
[2019-06-26] MEDS: KETOROLAC 15MG/ML VIAL IV PRN ×4 (01:14→23:59)
[2019-06-26] MEDS: LORAZEPAM 2MG/ML CPJ IV PRN ×3 (02:26→23:52)
[2019-06-26] MEDS: SUCRALFATE 1 G/10 ML UDC PO SCH ×4 (06:20→21:26)
[2019-06-26] MEDS: PANTOPRAZOLE SODIUM 40 MG/VIAL IV SCH ×2 (06:20→17:08)
[2019-06-26] MEDS: SODIUM CHLORIDE 0.9% 1,000 ML IV SCH ×2 (07:21→19:36)
[2019-06-26] MEDS: ZOLPIDEM TARTRATE 5MG TABLET PO PRN (19:36)
[2019-06-26] MEDS: CEFTRIAXONE 1 G PREMIX 50 ML IV SCH (21:39)
[2019-06-27] VITALS (12 sets, daily range): BP systolic 125–164; BP diastolic 49–93
[2019-06-27] MEDS: PANTOPRAZOLE SODIUM 40 MG/VIAL IV SCH ×2 (05:21→17:52)
[2019-06-27] MEDS: SODIUM CHLORIDE 0.9% 1,000 ML IV SCH (05:21)
[2019-06-27] MEDS: SUCRALFATE 1 G/10 ML UDC PO SCH ×4 (06:30→20:39)
[2019-06-27] MEDS: ONDANSETRON HCL 4MG/2ML INJ IV PRN ×2 (07:42→18:13)
[2019-06-27] MEDS: KETOROLAC 15MG/ML VIAL IV PRN ×2 (07:43→14:42)
[2019-06-27] MEDS: LORAZEPAM 2MG/ML CPJ IV PRN (09:46)
[2019-06-27] MEDS: ZOLPIDEM TARTRATE 5MG TABLET PO PRN (20:39)
[2019-06-28 00:36] VITALS: BP 153/78
[2019-06-28] MEDS: KETOROLAC 15MG/ML VIAL IV PRN ×4 (03:19→21:30)
[2019-06-28] MEDS: ONDANSETRON HCL 4MG/2ML INJ IV PRN ×4 (04:38→14:44)
[2019-06-28 04:45] VITALS: BP 148/75
[2019-06-28] MEDS: PANTOPRAZOLE SODIUM 40 MG/VIAL IV SCH ×2 (05:22→18:00)
[2019-06-28] MEDS: SUCRALFATE 1 G/10 ML UDC PO SCH ×4 (06:43→20:14)
[2019-06-28 08:09] VITALS: BP 166/81
[2019-06-28 12:18] VITALS: BP 109/79
[2019-06-28] MEDS: ACETAMINOPHEN 325MG TABLET PO PRN ×2 (13:02→17:57)
[2019-06-28 16:24] VITALS: BP 149/76
[2019-06-28 20:00] VITALS: BP 157/77
[2019-06-28] MEDS: ZOLPIDEM TARTRATE 5MG TABLET PO PRN (20:13)
[2019-06-29] MEDS: KETOROLAC 15MG/ML VIAL IV PRN ×2 (03:37→09:55)
[2019-06-29] MEDS: ONDANSETRON HCL 4MG/2ML INJ IV PRN ×5 (03:42→22:28)
[2019-06-29 04:15] VITALS: BP 168/80
[2019-06-29] MEDS: ACETAMINOPHEN 325MG TABLET PO PRN ×3 (05:07→20:57)
[2019-06-29] MEDS: PANTOPRAZOLE SODIUM 40 MG/VIAL IV SCH (06:00)
[2019-06-29] MEDS: SUCRALFATE 1 G/10 ML UDC PO SCH ×4 (06:45→20:58)
[2019-06-29] MEDS: PANTOPRAZOLE 40MG DR TABLET PO SCH (10:40)
[2019-06-29 12:00] VITALS: BP 141/73
[2019-06-29 16:00] VITALS: BP 150/77
[2019-06-29] MEDS: KETOROLAC 30MG/ML VIAL IV PRN ×2 (16:40→22:29)
[2019-06-29 20:00] VITALS: BP 163/82
[2019-06-29] MEDS: ZOLPIDEM TARTRATE 5MG TABLET PO PRN (20:56)
[2019-06-30 04:00] VITALS: BP 163/80
[2019-06-30] MEDS: KETOROLAC 30MG/ML VIAL IV PRN ×5 (04:52→17:37)
[2019-06-30] MEDS: ACETAMINOPHEN 325MG TABLET PO PRN ×2 (05:03→14:45)
[2019-06-30] MEDS: PANTOPRAZOLE 40MG DR TABLET PO SCH (08:22)
[2019-06-30] MEDS: SUCRALFATE 1 G/10 ML UDC PO SCH ×4 (08:22→20:00)
[2019-06-30] MEDS: ONDANSETRON HCL 4MG/2ML INJ IV PRN ×2 (08:25→09:29)
[2019-06-30 12:00] VITALS: BP 142/69
[2019-06-30] MEDS: ZOLPIDEM TARTRATE 5MG TABLET PO PRN (19:57)
[2019-06-30 20:00] VITALS: BP 161/72
[2019-07-01] MEDS: ONDANSETRON HCL 4MG/2ML INJ IV PRN ×2 (02:39→11:34)
[2019-07-01] MEDS: KETOROLAC 30MG/ML VIAL IV PRN ×3 (02:41→20:05)
[2019-07-01] MEDS: ACETAMINOPHEN 325MG TABLET PO PRN (05:58)
[2019-07-01 08:00] VITALS: BP 149/68
[2019-07-01] MEDS: SUCRALFATE 1 G/10 ML UDC PO SCH ×5 (08:26→20:07)
[2019-07-01] MEDS: PANTOPRAZOLE 40MG DR TABLET PO SCH (08:26)
[2019-07-01 12:00] VITALS: BP 140/70
[2019-07-01 16:00] VITALS: BP 141/78
[2019-07-01 20:00] VITALS: BP 159/73
[2019-07-01] MEDS: ZOLPIDEM TARTRATE 5MG TABLET PO PRN (20:06)
[2019-07-02] VITALS: BP 144/60
[2019-07-02 04:00] VITALS: BP 147/76
[2019-07-02] MEDS: SUCRALFATE 1 G/10 ML UDC PO SCH ×4 (06:26→21:00)
[2019-07-02] MEDS: PANTOPRAZOLE 40MG DR TABLET PO SCH (06:26)
[2019-07-02 07:11] VITALS: BP 151/69
[2019-07-02] MEDS: KETOROLAC 30MG/ML VIAL IV PRN ×2 (07:11→14:07)
[2019-07-02] MEDS: ACETAMINOPHEN 325MG TABLET PO PRN (09:42)
[2019-07-02 12:00] VITALS: BP 145/66
[2019-07-02 16:00] VITALS: BP 122/68
[2019-07-02] MEDS: KETOROLAC 15MG/ML VIAL IV PRN (19:54)
[2019-07-02] MEDS: ZOLPIDEM TARTRATE 5MG TABLET PO PRN (19:54)
[2019-07-02 20:00] VITALS: BP 159/69
[2019-07-03] VITALS: BP 148/69
[2019-07-03 05:00] VITALS: BP 139/63
[2019-07-03] MEDS: PANTOPRAZOLE 40MG DR TABLET PO SCH (06:25)
[2019-07-03] MEDS: ONDANSETRON HCL 4MG/2ML INJ IV PRN (06:27)
[2019-07-03] MEDS: KETOROLAC 15MG/ML VIAL IV PRN ×2 (06:28→15:09)
[2019-07-03] MEDS: SUCRALFATE 1 G/10 ML UDC PO SCH ×4 (06:34→20:15)
[2019-07-03 08:00] VITALS: BP 145/82
[2019-07-03 12:00] VITALS: BP 118/63
[2019-07-03] MEDS: ACETAMINOPHEN 325MG TABLET PO PRN (12:29)
[2019-07-03 16:00] VITALS: BP 140/59
[2019-07-03] MEDS: ZOLPIDEM TARTRATE 5MG TABLET PO PRN (19:51)
[2019-07-03 20:00] VITALS: BP 136/64
[2019-07-04] VITALS: BP 154/84
[2019-07-04 04:00] VITALS: BP 165/69
[2019-07-04] MEDS: PANTOPRAZOLE 40MG DR TABLET PO SCH (06:20)
[2019-07-04] MEDS: ONDANSETRON HCL 4MG/2ML INJ IV PRN ×2 (06:20→13:59)
[2019-07-04] MEDS: KETOROLAC 15MG/ML VIAL IV PRN ×2 (06:21→14:01)
[2019-07-04] MEDS: SUCRALFATE 1 G/10 ML UDC PO SCH ×4 (06:49→20:05)
[2019-07-04] MEDS: ACETAMINOPHEN 325MG TABLET PO PRN (11:39)
[2019-07-04 12:30] VITALS: BP 136/62
[2019-07-04 16:00] VITALS: BP 150/58
[2019-07-04 20:00] VITALS: BP 144/86
[2019-07-04] MEDS: ZOLPIDEM TARTRATE 5MG TABLET PO PRN (20:05)
[2019-07-05] VITALS: BP 133/54
[2019-07-05 04:00] VITALS: BP 146/71
[2019-07-05] MEDS ORDERED: KETOROLAC 15MG/ML VIAL IV PRN (06:06)
[2019-07-05] MEDS: PANTOPRAZOLE 40MG DR TABLET PO SCH (06:13)
[2019-07-05] MEDS: SUCRALFATE 1 G/10 ML UDC PO SCH ×4 (06:13→21:00)
[2019-07-05 08:00] VITALS: BP 141/93
[2019-07-05 12:00] VITALS: BP 148/60
[2019-07-05] MEDS: HYDROCODONE/ACETAMINOPHEN 5/325MG TABLET PO PRN ×2 (12:30→21:08)
[2019-07-05 16:00] VITALS: BP 113/57
[2019-07-05 20:00] VITALS: BP 124/65
[2019-07-05] MEDS: ZOLPIDEM TARTRATE 5MG TABLET PO PRN (20:12)
[2019-07-06 05:30] VITALS: BP 142/76
[2019-07-06] MEDS: PANTOPRAZOLE 40MG DR TABLET PO SCH (05:37)
[2019-07-06] MEDS: HYDROCODONE/ACETAMINOPHEN 5/325MG TABLET PO PRN ×3 (05:38→18:03)
[2019-07-06] MEDS: SUCRALFATE 1 G/10 ML UDC PO SCH ×4 (05:38→20:42)
[2019-07-06 12:00] VITALS: BP 126/68
[2019-07-06 16:00] VITALS: BP 136/57
[2019-07-06 20:00] VITALS: BP 107/62
[2019-07-06] MEDS: ZOLPIDEM TARTRATE 5MG TABLET PO PRN (20:42)
[2019-07-07] VITALS: BP 112/47
[2019-07-07] MEDS: HYDROCODONE/ACETAMINOPHEN 5/325MG TABLET PO PRN ×4 (01:09→20:14)
[2019-07-07] MEDS: PANTOPRAZOLE 40MG DR TABLET PO SCH (06:24)
[2019-07-07] MEDS: SUCRALFATE 1 G/10 ML UDC PO SCH ×4 (06:24→20:14)
[2019-07-07 07:53] VITALS: BP 133/91
[2019-07-07 11:40] VITALS: BP 123/65
[2019-07-07 15:33] VITALS: BP 120/67
[2019-07-07] MEDS: ALPRAZOLAM 0.25 MG TABLET PO PRN (17:32)
[2019-07-07 20:00] VITALS: BP 118/69
[2019-07-07] MEDS: ZOLPIDEM TARTRATE 5MG TABLET PO PRN (21:05)
[2019-07-08] MEDS: ALPRAZOLAM 0.25 MG TABLET PO PRN ×2 (01:35→09:43)
[2019-07-08] MEDS: HYDROCODONE/ACETAMINOPHEN 5/325MG TABLET PO PRN ×2 (02:25→08:37)
[2019-07-08 04:43] VITALS: BP 119/59
[2019-07-08] MEDS: PANTOPRAZOLE 40MG DR TABLET PO SCH (06:34)
[2019-07-08] MEDS: SUCRALFATE 1 G/10 ML UDC PO SCH ×2 (06:34→11:58)
[2019-07-08 08:12] VITALS: BP 110/77
[2019-07-08 11:14] VITALS: BP 110/77
[2019-07-08 11:52] VITALS: BP 148/66
== END 2019-07-08 13:40 | disposition home or self-care (01) | DRG 241 ==
LOC: ER 12:22 → EDBEDREQ 13:39 → 3WST 14:27 → ENRESERV 14:53 → 6WST 06-27 23:40
PROVIDERS: ADMIT Internal Medicine; ATTEND Internal Medicine
DX: K29.21 Alcoholic gastritis with bleeding (principal); E87.2 Acidosis; K74.60 Unspecified cirrhosis of liver; E87.1 Hypo-osmolality and hyponatremia; K20.9 Esophagitis, unspecified; I10 Essential (primary) hypertension; F41.9 Anxiety disorder, unspecified; F43.9 Reaction to severe stress, unspecified; F10.20 Alcohol dependence, uncomplicated; Z87.11 Personal history of peptic ulcer disease; Z76.5 Malingerer [conscious simulation]; Z87.440 Personal history of urinary (tract) infections; Z79.899 Other long term (current) drug therapy
CPT/HCPCS: 36415; 71045; 74177; 80305; 80320; 81003; 83036; 83605; 83880; 84439; 84443; 84484; 86850; 86900; 93005; 93970; 96374; 97116; 97162; 97166; 97530; 97535; 99291; C1893; C9113; J0696; J1885; J2060; J2270; J2354; J2405; J3411; J3490; J7030; J7050; Q9967; G0480

== ENCOUNTER 2019-08-15 08:35 | Emergency (ER) | payer MEDICAID ==
[~2019-08-15] VITALS: Ht 190.5 cm; Wt 91.0 kg
[~2019-08-15 08:35] MED LIST changes: -FAMO20TA8 PO; -LACT10SO7 PO; -NIFE60TA64 PO
[2019-08-15] MEDS: SODIUM CHLORIDE 0.9% 1,000 ML IV ONE (09:07)
[2019-08-15] MEDS: ONDANSETRON HCL 4MG/2ML INJ IV STA (09:19)
[2019-08-15] MEDS: KETOROLAC 30MG/ML VIAL IV STA (09:20)
[2019-08-15] MEDS: MORPHINE SULFATE 4 MG/ML CPJ (NOT FOR IM USE) IV STA (09:20)
[2019-08-15 09:27] LABS: BASOPHILS % 0.5 % (0.0-2.0); EOSINOPHILS % 0.9 % (0.0-5.0); HEMATOCRIT. 51.9 % (42.0-52.0); HEMOGLOBIN. 17.6 g/dL (14.0-18.0); LYMPHOCYTES % 20.3 % (20.0-50.0); MEAN CORPUSCULAR HEMOGLOBIN 32.1 pg (28.0-32.0); MEAN CORPUSCULAR VOLUME 94.7 fL (80.0-94.0); MEAN PLATELET VOLUME 9.1 fl (7.4-10.4); MONOCYTES % 6.3 % (2.0-8.0); PLATELET 146 x1000/uL (130-400); RED BLOOD CELL COUNT 5.48 mill/uL (4.7-6.1); RED CELL DISTRIBUTION WIDTH 14.5 % (11.6-14.6)
[2019-08-15 09:33] LABS: CHLORIDE 106 mEq/L (98-107); INR 1.1
[2019-08-15 09:35] LABS: CLARITY URINE CLEAR (CLEAR); COLOR URINE DARK YELLOW (YELLOW); KETONES URINE 2+ (NEGATIVE); LEUKOCYTE ESTERASE URINE NEGATIVE (NEGATIVE); NITRITE URINE NEGATIVE (NEGATIVE); OCCULT BLOOD URINE NEGATIVE (NEGATIVE); PROTEIN URINE TRACE (NEGATIVE); SPECIFIC GRAVITY URINE 1.025 (1.005-1.030)
[2019-08-15] MEDS: HYDROCODONE/ACETAMINOPHEN 10/325MG TABLET PO ONE (11:42)
[2019-08-15] MEDS: ACETAMINOPHEN 160MG/5ML UDC PO ONE (16:44)
[2019-08-16 05:41] VITALS: BP 128/78
== END 2019-08-16 05:45 | disposition home or self-care (01) ==
LOC: ER 08:35
DX: G89.29 Other chronic pain (principal); M54.5 Low back pain; R10.32 Left lower quadrant pain; F41.9 Anxiety disorder, unspecified; K59.00 Constipation, unspecified; I10 Essential (primary) hypertension; R11.2 Nausea with vomiting, unspecified; K76.9 Liver disease, unspecified; Z87.440 Personal history of urinary (tract) infections; Z87.09 Personal history of other diseases of the respiratory system; Z87.19 Personal history of other diseases of the digestive system; Z79.899 Other long term (current) drug therapy; Z98.890 Other specified postprocedural states
CPT/HCPCS: 36415; 74176; 80053; 81003; 83690; 85025; 85610; 96361; 96374; 96375; 99284; J1885; J2270; J2405; J7030

== ENCOUNTER 2019-08-16 05:21 | Emergency (ER) | payer MEDICAID ==
[~2019-08-16] VITALS: Ht 180.3 cm; Wt 55.0 kg
[2019-08-16] MEDS ORDERED: KETOROLAC 60MG/2ML VIAL IM STA (07:19)
[2019-08-16] MEDS ORDERED: ONDANSETRON HCL 4MG/2ML INJ IM STA (07:19)
[2019-08-16] MEDS ORDERED: HYDROCODONE/ACETAMINOPHEN 5/325MG TABLET PO STA (07:19)
[2019-08-16] MEDS ORDERED: LORAZEPAM 1MG TABLET PO ONE (10:30)
[2019-08-16 12:05] VITALS: BP 140/89
== END 2019-08-16 12:08 | disposition home or self-care (01) ==
LOC: ER 05:21
DX: M54.5 Low back pain (principal); G89.29 Other chronic pain; R10.9 Unspecified abdominal pain; F41.9 Anxiety disorder, unspecified; Z87.891 Personal history of nicotine dependence; K80.20 Calculus of gallbladder without cholecystitis without obstruction; K80.70 Calculus of gallbladder and bile duct without cholecystitis without obstruction
CPT/HCPCS: 96372; 99283; J1885; J2405

== ENCOUNTER 2019-08-30 11:21 | Emergency (ER) | payer MEDICAID ==
[~2019-08-30] VITALS: Ht 172.7 cm; Wt 75.0 kg
[2019-08-30 13:09] LABS: CLARITY URINE CLEAR (CLEAR); COLOR URINE YELLOW (YELLOW); KETONES URINE NEGATIVE (NEGATIVE); LEUKOCYTE ESTERASE URINE NEGATIVE (NEGATIVE); NITRITE URINE NEGATIVE (NEGATIVE); OCCULT BLOOD URINE NEGATIVE (NEGATIVE); PROTEIN URINE NEGATIVE (NEGATIVE); SPECIFIC GRAVITY URINE 1.007 (1.005-1.030)
[2019-08-30] MEDS: KETOROLAC 15MG/ML VIAL IM ONE (13:17)
[2019-08-30] MEDS: ACETAMINOPHEN 325MG TABLET PO ONE (13:17)
[2019-08-30 13:39] LABS: CHLORIDE 106 mEq/L (98-107); PROTHROMBIN TIME 10.7 sec (9.6-11.0)
[2019-08-30] MEDS ORDERED: ONDANSETRON HCL 4MG/2ML INJ IV ONE (13:45)
[2019-08-30] MEDS ORDERED: HYDROCODONE/ACETAMINOPHEN 5/325MG TABLET PO ONE (13:45)
[2019-08-30 13:47] LABS: BASOPHILS % 0.8 % (0.0-2.0); EOSINOPHILS % 1.4 % (0.0-5.0); HEMATOCRIT. 48.7 % (42.0-52.0); HEMOGLOBIN. 16.8 g/dL (14.0-18.0); LYMPHOCYTES % 24.8 % (20.0-50.0); MEAN CORPUSCULAR HEMOGLOBIN 32.2 pg (28.0-32.0); MEAN CORPUSCULAR VOLUME 93.4 fL (80.0-94.0); MONOCYTES % 5.1 % (2.0-8.0); NEUTROPHILS % 67.9 % (40.0-76.0); RED BLOOD CELL COUNT 5.21 mill/uL (4.7-6.1); RED CELL DISTRIBUTION WIDTH 13.7 % (11.6-14.6)
[2019-08-30 14:05] LABS: PLATELET 173 x1000/uL (130-400)
[2019-08-30 14:19] VITALS: BP 154/99
== END 2019-08-30 15:05 | disposition home or self-care (01) ==
LOC: ER 11:21
DX: M54.5 Low back pain (principal); E87.6 Hypokalemia; Z87.19 Personal history of other diseases of the digestive system; F41.9 Anxiety disorder, unspecified; I10 Essential (primary) hypertension; Z86.73 Personal history of transient ischemic attack (TIA), and cerebral infarction without residual deficits; Z79.899 Other long term (current) drug therapy
CPT/HCPCS: 36415; 74176; 80053; 81003; 83690; 85025; 85610; 96374; 99284; J1885; J2405

== ENCOUNTER 2019-08-30 14:59 | Emergency (ER) | payer MEDICAID ==
[~2019-08-30] VITALS: Ht 180.3 cm; Wt 55.0 kg
[2019-08-30] MEDS ORDERED: ACETAMINOPHEN 325MG TABLET PO ONE (21:45)
[2019-08-31] MEDS ORDERED: ACETAMINOPHEN 325MG TABLET PO STA (08:59)
[2019-08-31 09:10] VITALS: BP 150/86
== END 2019-08-31 09:05 | disposition home or self-care (01) ==
LOC: ER 14:59
DX: Z51.89 Encounter for other specified aftercare (principal); R10.9 Unspecified abdominal pain; F41.9 Anxiety disorder, unspecified; I10 Essential (primary) hypertension; R56.9 Unspecified convulsions; Z86.73 Personal history of transient ischemic attack (TIA), and cerebral infarction without residual deficits
CPT/HCPCS: 99283; Z7610

== ENCOUNTER 2019-10-11 22:27 | Emergency (ER) | payer MEDICAID ==
[~2019-10-11] VITALS: Ht 170.2 cm; Wt 63.0 kg
[2019-10-11] MEDS ORDERED: SODIUM CHLORIDE 0.9% 1,000 ML IV ONE (23:06)
[2019-10-12 00:34] LABS: BASOPHILS % 1.1 % (0.0-2.0); EOSINOPHILS % 2.7 % (0.0-5.0); HEMATOCRIT. 44.3 % (42.0-52.0); HEMOGLOBIN. 15.1 g/dL (14.0-18.0); LYMPHOCYTES % 41.4 % (20.0-50.0); MEAN CORPUSCULAR HEMOGLOBIN 31.5 pg (28.0-32.0); MEAN CORPUSCULAR VOLUME 92.7 fL (80.0-94.0); MEAN PLATELET VOLUME 8.9 fl (7.4-10.4); MONOCYTES % 6.6 % (2.0-8.0); NEUTROPHILS % 48.2 % (40.0-76.0); PLATELET 160 x1000/uL (130-400); RED BLOOD CELL COUNT 4.78 mill/uL (4.7-6.1)
[2019-10-12 00:43] LABS: CHLORIDE 107 mEq/L (98-107)
[2019-10-12 00:50] LABS: ETHANOL BLOOD 216 mg/dL
[2019-10-12] MEDS ORDERED: ACETAMINOPHEN 325MG TABLET PO ONE (01:15)
[2019-10-12 01:37] LABS: *AMPHETAMINES SCREEN URINE NEGATIVE (NEGATIVE); *BARBITURATES SCREEN URINE NEGATIVE (NEGATIVE); *BENZODIAZEPINES SCREEN URINE NEGATIVE (NEGATIVE); *COCAINE SCREEN URINE NEGATIVE (NEGATIVE); METHADONE URINE SCREEN NEGATIVE (NEGATIVE)
[2019-10-12 01:38] LABS: CANNABINOID URINE SCREEN PRESUMTIVE POSITIVE (NEGATIVE); OPIATES URINE SCREEN NEGATIVE (NEGATIVE); PHENCYCLIDINE URINE SCREEN NEGATIVE (NEGATIVE)
[2019-10-12 04:50] VITALS: BP 144/83
[2019-10-12] MEDS ORDERED: ALPRAZOLAM 0.5 MG TABLET PO ONE (07:45)
== END 2019-10-12 08:08 | disposition left against medical advice (07) ==
LOC: ER 22:27
DX: R20.0 Anesthesia of skin (principal); M54.2 Cervicalgia; M54.9 Dorsalgia, unspecified; F41.9 Anxiety disorder, unspecified; I10 Essential (primary) hypertension; R56.9 Unspecified convulsions; Z86.73 Personal history of transient ischemic attack (TIA), and cerebral infarction without residual deficits
CPT/HCPCS: 36415; 72125; 80053; 80305; 80320; 85025; 99284; J7030; G0480

== ENCOUNTER 2019-10-12 08:26 | Emergency (ER) | payer MEDICAID ==
[~2019-10-12] VITALS: Ht 182.9 cm; Wt 54.0 kg
[2019-10-12] MEDS ORDERED: CLONIDINE 0.1MG TABLET PO ONE ×2 (17:15→17:46)
[2019-10-12] MEDS ORDERED: CLONIDINE 0.2MG TABLET PO ONE (19:00)
[2019-10-12] MEDS ORDERED: FAMOTIDINE 20MG TABLET PO ONE (19:15)
[2019-10-12] MEDS ORDERED: MAGNESIUM/ALUMINUM HYDROXIDE/SIMETHICONE 30ML UDC PO ONE (19:30)
[2019-10-12] MEDS ORDERED: VISCOUS LIDOCAINE 2% 15 ML UDC PO ONE (19:30)
[2019-10-12] MEDS ORDERED: AMLODIPINE 10MG TABLET PO ONE (20:30)
[2019-10-13 07:42] VITALS: BP 151/85
== END 2019-10-13 08:04 | disposition home or self-care (01) ==
LOC: ER 08:26
DX: R10.13 Epigastric pain (principal); M54.2 Cervicalgia; F41.9 Anxiety disorder, unspecified; I10 Essential (primary) hypertension; R56.9 Unspecified convulsions; Z86.73 Personal history of transient ischemic attack (TIA), and cerebral infarction without residual deficits
CPT/HCPCS: 99284

== ENCOUNTER 2021-05-07 17:07 | Inpatient (IN) | payer MEDICAID ==
[~2021-05-07] VITALS: Ht 177.8 cm; Wt 64.9 kg
[2021-05-07] MEDS ORDERED: ASPIRIN 325MG EC TABLET PO ONE (21:30)
[2021-05-07] MEDS ORDERED: ACETAMINOPHEN 500MG TABLET PO ONE (21:30)
[2021-05-07 22:12] LABS: BASOPHILS % 0.8 % (0.0-2.0); EOSINOPHILS % 1.1 % (0.0-5.0); HEMATOCRIT. 43.3 % (42.0-52.0); HEMOGLOBIN. 15.2 g/dL (14.0-18.0); LYMPHOCYTES % 29.9 % (20.0-50.0); MEAN CORPUSCULAR HEMOGLOBIN 34.4 pg (28.0-32.0); MEAN CORPUSCULAR VOLUME 97.8 fL (80.0-94.0); MONOCYTES % 6.4 % (2.0-8.0); NEUTROPHILS % 61.8 % (40.0-76.0); PLATELET 127 x1000/uL (130-400); RED BLOOD CELL COUNT 4.43 mill/uL (4.7-6.1); RED CELL DISTRIBUTION WIDTH 14.2 % (11.6-14.6)
[2021-05-07 22:16] LABS: CHLORIDE 112 mEq/L (98-107)
[2021-05-07 22:21] LABS: ETHANOL BLOOD 82 mg/dL
[2021-05-07] MEDS ORDERED: LEVETIRACETAM 1000MG PREMIX 100 ML IV ONE (22:45)
[2021-05-07] MEDS ORDERED: LORAZEPAM 2MG/ML CPJ IV ONE (22:45)
[2021-05-07] MEDS ORDERED: MORPHINE SULFATE 4 MG/ML CPJ (NOT FOR IM USE) IV STA (23:44)
[2021-05-07] MEDS ORDERED: ONDANSETRON HCL 4MG/2ML INJ IV STA (23:44)
[2021-05-08] MEDS ORDERED: ACETAMINOPHEN 325MG TABLET PO PRN ×2
[2021-05-08] MEDS ORDERED: MAGNESIUM/ALUMINUM HYDROXIDE/SIMETHICONE 30ML UDC PO PRN
[2021-05-08] MEDS ORDERED: ONDANSETRON HCL 4MG/2ML INJ IV PRN
[2021-05-08] MEDS ORDERED: DIPHENHYDRAMINE 50MG/ML VIAL IV PRN
[2021-05-08] MEDS: HYDRALAZINE 20MG/ML VIAL IV PRN (00:11)
[2021-05-08] MEDS: SODIUM CHLORIDE 0.9% 1,000 ML IV SCH ×2 (00:11→22:19)
[2021-05-08] MEDS ORDERED: MVI, ADULT NO.1 10 ML, FOLIC ACID 1 MG, THIAMINE HCL 100 MG in SODIUM CHLORIDE 0.9% 1,0... IV SCH (01:00)
[2021-05-08 01:15] LABS: CLARITY URINE CLEAR (CLEAR); COLOR URINE YELLOW (YELLOW); KETONES URINE NEGATIVE (NEGATIVE); LEUKOCYTE ESTERASE URINE NEGATIVE (NEGATIVE); NITRITE URINE NEGATIVE (NEGATIVE); OCCULT BLOOD URINE NEGATIVE (NEGATIVE); PH URINE 5.5 (4.5-8.0); PROTEIN URINE NEGATIVE (NEGATIVE); SPECIFIC GRAVITY URINE 1.015 (1.005-1.030)
[2021-05-08] MEDS ORDERED: MVI, ADULT NO.1 10 ML, FOLIC ACID 1 MG, THIAMINE HCL 100 MG in SODIUM CHLORIDE 0.9% 1,0... IV ONE (01:15)
[2021-05-08 01:26] LABS: *AMPHETAMINES SCREEN URINE NEGATIVE (NEGATIVE); *BARBITURATES SCREEN URINE NEGATIVE (NEGATIVE); *BENZODIAZEPINES SCREEN URINE PRESUMTIVE POSITIVE (NEGATIVE); *COCAINE SCREEN URINE NEGATIVE (NEGATIVE); METHADONE URINE SCREEN NEGATIVE (NEGATIVE); OPIATES URINE SCREEN PRESUMTIVE POSITIVE (NEGATIVE)
[2021-05-08 01:27] LABS: CANNABINOID URINE SCREEN PRESUMTIVE POSITIVE (NEGATIVE); PHENCYCLIDINE URINE SCREEN NEGATIVE (NEGATIVE)
[2021-05-08] MEDS: CLONIDINE 0.1MG TABLET PO PRN ×2 (02:46→14:25)
[2021-05-08] MEDS: KETOROLAC 30MG/ML VIAL IV PRN ×3 (06:10→15:30)
[2021-05-08] MEDS ORDERED: LEVETIRACETAM 500MG PREMIX 100 ML IV SCH (10:00)
[2021-05-08] MEDS: LORAZEPAM 2MG/ML CPJ IV PRN ×2 (14:26→22:56)
[2021-05-08] MEDS ORDERED: TRAZ-251 MT (17:53)
[2021-05-08 18:00] VITALS: BP 156/90
[2021-05-08 18:17] VITALS: BP 159/90
[2021-05-08 20:00] VITALS: BP 131/80
[2021-05-09] VITALS: BP 152/77
[2021-05-09] MEDS: LEVETIRACETAM 500MG PREMIX 100 ML IV SCH ×3 (02:02→20:10)
[2021-05-09 04:00] VITALS: BP 137/80
[2021-05-09 08:00] VITALS: BP 157/77
[2021-05-09] MEDS: KETOROLAC 30MG/ML VIAL IV PRN ×2 (08:10→15:33)
[2021-05-09] MEDS: LORAZEPAM 2MG/ML CPJ IV PRN ×2 (10:38→20:10)
[2021-05-09 12:00] VITALS: BP 183/110
[2021-05-09] MEDS: HYDRALAZINE 20MG/ML VIAL IV PRN (13:01)
[2021-05-09] MEDS: SODIUM CHLORIDE 0.9% 1,000 ML IV SCH (15:33)
[2021-05-09 16:08] VITALS: BP 154/86
[2021-05-09 20:00] VITALS: BP_SYST 151; BP_SYST 158; BP_DIAS 63; BP_DIAS 89
[2021-05-10] VITALS: BP 155/77
== END 2021-05-10 08:00 | disposition home or self-care (01) | DRG 53 ==
LOC: ER 17:07 → MICUSO 23:39 → EDBEDREQ 23:42 → EDBEDREQTM 23:42 → 7EST 05-08 16:34
PROVIDERS: ADMIT Internal Medicine; ATTEND Internal Medicine
DX: G40.909 Epilepsy, unspecified, not intractable, without status epilepticus (principal); E87.8 Other disorders of electrolyte and fluid balance, not elsewhere classified; F41.9 Anxiety disorder, unspecified; I10 Essential (primary) hypertension; R27.0 Ataxia, unspecified; Z86.73 Personal history of transient ischemic attack (TIA), and cerebral infarction without residual deficits
CPT/HCPCS: 36415; 71045; 80053; 80305; 80320; 81003; 82962; 83880; 84484; 85025; 93005; 97162; 99285; C1893; J0360; J1885; J1953; J2060; J2270; J2405; J3411; J3490; J7030; A4315; G0480

== ENCOUNTER 2024-03-24 21:56 | Emergency (ER) | payer MEDICAID ==
[~2024-03-24] VITALS: Ht 177.8 cm; Wt 65.0 kg
[~2024-03-24 21:56] MED LIST changes: -ALPR0.5T MT; +LEVO-65 MT; +OMEP20CA14 MT; +SUCR1TAB30 MT; +TRAZ-251 MT
[2024-03-24 22:02] VITALS: BP 187/98; PULSE 101; RESP 16; TEMP 98; O2SAT 100
[2024-03-24] MEDS ORDERED: LEVETIRACETAM 500MG TABLET PO ONE (23:00)
[2024-03-24] MEDS ORDERED: HYDROCODONE/ACETAMINOPHEN 5/325MG TABLET PO ONE (23:00)
[2024-03-24 23:43] LABS: BASOPHILS % 0.9 % (0.0-2.0); HEMATOCRIT. 42.8 % (42.0-52.0); HEMOGLOBIN. 14.4 g/dL (14.0-18.0); LYMPHOCYTES % 35.8 % (20.0-50.0); MEAN CORPUSCULAR HEMOGLOBIN 31.6 pg (28.0-32.0); MEAN CORPUSCULAR HGB CONC 33.7 g/dL (31.0-37.0); MEAN CORPUSCULAR VOLUME 93.8 fL (80.0-94.0); MEAN PLATELET VOLUME 8.3 fl (7.4-10.4); MONOCYTES % 6.2 % (2.0-8.0); NEUTROPHILS % 55.1 % (40.0-76.0); PLATELET 183 x1000/uL (130-400); RED BLOOD CELL COUNT 4.57 mill/uL (4.7-6.1); RED CELL DISTRIBUTION WIDTH 14.9 % (11.6-14.6); WHITE BLOOD COUNT 5.1 x1000/uL (4.5-11.0)
[2024-03-24] MEDS: SODIUM CHLORIDE 0.9% 1,000 ML IV ONE (23:45)
[2024-03-24] MEDS ORDERED: METOCLOPRAMIDE HCL 10MG/2ML VIAL IV ONE (23:45)
[2024-03-25 00:04] LABS: CHLORIDE 110 mEq/L (98-107); POTASSIUM 4.4 mEq/L (3.5-5.1); SODIUM 142 mEq/L (136-145)
[2024-03-25 00:05] LABS: CALCIUM 9.8 mg/dL (8.7-10.4); CARBON DIOXIDE 25 mEq/L (21-32)
[2024-03-25 00:10] LABS: CREATININE 0.7 mg/dL (0.6-1.3); GLUCOSE 82 mg/dL (70-105)
[2024-03-25 00:11] LABS: ETHANOL BLOOD 198 mg/dL (<10)
[2024-03-25 00:12] LABS: ALANINE AMINOTRANSFERASE 79 IU/L (10-49); ALBUMIN 5.1 g/dL (3.2-4.8); ASPARTATE AMINOTRANSFERASE 138 IU/L (<34); BILIRUBIN DIRECT 0.3 mg/dL (<=3.0)
[2024-03-25 00:13] LABS: BILIRUBIN TOTAL 0.7 mg/dL (0.1-1.0); PROTEIN TOTAL 7.7 g/dL (6.0-8.3); UREA NITROGEN BLOOD < 5 mg/dL (9-23)
[2024-03-25] MEDS ORDERED: KEPP500 MT (01:19)
== END 2024-03-25 05:14 | disposition home or self-care (01) ==
LOC: ER 21:56
DX: G92.9 Unspecified toxic encephalopathy (principal); R56.9 Unspecified convulsions; I10 Essential (primary) hypertension; Z79.899 Other long term (current) drug therapy
CPT/HCPCS: 80076; 80048; 80320; 85025; 36415; 70450; 72125; 96360; 99284; J7030; J2765; G0480

== ENCOUNTER 2025-09-26 15:12 | Inpatient (IN) | payer MEDICAID, OTHER ==
[~2025-09-26] VITALS: Ht 180.3 cm; Wt 52.6 kg
[~2025-09-26 15:12] MED LIST changes: +AMLO10TA80 MT; +KEPP500 MT; +LOSA25TA26 MT
[2025-09-26 15:14] VITALS: O2SAT 100
[2025-09-26] MEDS ORDERED: GABAPENTIN 300MG CAPSULE PO ONE (15:45)
[2025-09-26] MEDS ORDERED: MORPHINE SULFATE 4 MG/ML INJ (FOR IV/IM USE) IV ONE (15:45)
[2025-09-26] MEDS ORDERED: ACYCLOVIR INJ 600 MG in DEXT 5% WATER 100 ML IV ONE (15:45)
[2025-09-26 16:07] LABS: BASOPHILS % 0.3 % (0.0-2.0); EOSINOPHILS % 5.5 % (0.0-5.0); HEMATOCRIT. 38.0 % (42.0-52.0); HEMOGLOBIN. 12.8 g/dL (14.0-18.0); LYMPHOCYTES % 10.3 % (20.0-50.0); MEAN PLATELET VOLUME 10.1 fl (7.4-10.4); MONOCYTES % 5.2 % (2.0-8.0); NEUTROPHILS % 78.7 % (40.0-76.0); PLATELET 138 x1000/uL (130-400); RED BLOOD CELL COUNT 4.39 mill/uL (4.7-6.1); RED CELL DISTRIBUTION WIDTH 16.9 % (11.6-14.6)
[2025-09-26 16:21] LABS: CREATININE 0.7 mg/dL (0.6-1.3)
[2025-09-26 16:22] LABS: PROTEIN TOTAL 7.3 g/dL (6.0-8.3); UREA NITROGEN BLOOD 9 mg/dL (9-23)
[2025-09-26 16:23] LABS: ASPARTATE AMINOTRANSFERASE 51 IU/L (<34)
[2025-09-26 16:24] LABS: BILIRUBIN DIRECT 0.1 mg/dL (<=3.0); BILIRUBIN TOTAL 0.3 mg/dL (0.1-1.0)
[2025-09-26 16:27] LABS: INR 1.1
[2025-09-26] MEDS: MORPHINE SULFATE 4 MG/ML INJ (FOR IV/IM USE) IV SCH (16:55)
[2025-09-26] MEDS: SODIUM CHLORIDE 0.9% 1,000 ML IV ONE (16:56)
[2025-09-26] MEDS: GABAPENTIN 300MG CAPSULE PO SCH (16:56)
[2025-09-26] MEDS: MORPHINE SULFATE 4 MG/ML INJ (FOR IV/IM USE) IV ONE (20:07)
[2025-09-26] MEDS: HYDROCODONE/ACETAMINOPHEN 10/325MG TABLET PO PRN (23:30)
[2025-09-26 23:46] VITALS: BP 116/82; PULSE 56; RESP 18; TEMP 35.4172
[2025-09-27] VITALS: BP 135/82; PULSE 85; RESP 18; TEMP 36.1; O2SAT 99
[2025-09-27] MEDS: ZOLPIDEM TARTRATE 5MG TABLET PO PRN (00:05)
[2025-09-27 04:00] VITALS: BP 159/72; PULSE 60; RESP 17; TEMP 35.9; O2SAT 98
[2025-09-27] MEDS ORDERED: NALOXONE HCL 0.4MG/ML VIAL IV PRN (04:00)
[2025-09-27 08:00] VITALS: BP 121/80; PULSE 55; RESP 18; TEMP 36.4; O2SAT 99
[2025-09-27] MEDS: LEVETIRACETAM 500MG TABLET PO SCH (09:38)
[2025-09-27 12:00] VITALS: BP 152/76; PULSE 84; RESP 15; TEMP 36.6; O2SAT 97
[2025-09-27] MEDS: GABAPENTIN 300MG CAPSULE PO SCH (13:52)
[2025-09-27 16:00] VITALS: BP 125/87; PULSE 95; RESP 17; TEMP 36.3; O2SAT 96
[2025-09-27] MEDS: ACYCLOVIR INJ 500 MG in DEXT 5% WATER 100 ML IV SCH (18:45)
[2025-09-27 20:00] VITALS: BP 103/75; PULSE 80; RESP 20; TEMP 36.7; O2SAT 99
[2025-09-28] VITALS: BP 105/61; PULSE 80; RESP 20; TEMP 36.4; O2SAT 96
[2025-09-28 04:00] VITALS: BP 123/57; PULSE 87; RESP 20; TEMP 36.5; O2SAT 98
[2025-09-28] MEDS: IVERMECTIN 3 MG TABLET PO NR (06:50)
[2025-09-28] MEDS: PERMETHRIN 5% CREAM 60GM TOP NR (06:50)
[2025-09-28 08:00] VITALS: BP 118/71; PULSE 89; RESP 20; TEMP 36.7; O2SAT 98
[2025-09-28] MEDS ORDERED: ALPR2TAB2 PO (11:30)
[2025-09-28 11:39] LABS: BASOPHILS % 0.3 % (0.0-2.0); EOSINOPHILS % 7.7 % (0.0-5.0); HEMATOCRIT. 32.4 % (42.0-52.0); HEMOGLOBIN. 10.9 g/dL (14.0-18.0); LYMPHOCYTES % 17.6 % (20.0-50.0); MEAN PLATELET VOLUME 10.0 fl (7.4-10.4); MONOCYTES % 9.4 % (2.0-8.0); NEUTROPHILS % 65.0 % (40.0-76.0); PLATELET 118 x1000/uL (130-400); RED BLOOD CELL COUNT 3.72 mill/uL (4.7-6.1); RED CELL DISTRIBUTION WIDTH 16.9 % (11.6-14.6)
[2025-09-28 11:50] LABS: CREATININE 0.5 mg/dL (0.6-1.3); UREA NITROGEN BLOOD 9 mg/dL (9-23)
[2025-09-28 12:00] VITALS: BP 116/87; PULSE 82; RESP 20; TEMP 36.7; O2SAT 98
[2025-09-28] MEDS: KETOROLAC 30MG/ML VIAL IV PRN (13:19)
[2025-09-28 16:00] VITALS: BP 104/65; PULSE 81; RESP 20; TEMP 36.6; O2SAT 98
[2025-09-28 20:00] VITALS: BP 120/67; PULSE 72; RESP 18; TEMP 36.7; O2SAT 96
[2025-09-29 04:00] VITALS: BP 114/61; PULSE 71; RESP 17; TEMP 36.3; O2SAT 100
[2025-09-29 06:26] LABS: CLARITY URINE CLEAR (CLEAR); COLOR URINE YELLOW (YELLOW); GLUCOSE URINE NEGATIVE (NEGATIVE); KETONES URINE NEGATIVE (NEGATIVE); LEUKOCYTE ESTERASE URINE NEGATIVE (NEGATIVE); NITRITE URINE NEGATIVE (NEGATIVE); OCCULT BLOOD URINE NEGATIVE (NEGATIVE); PH URINE 5.5 (4.5-8.0); PROTEIN URINE NEGATIVE (NEGATIVE); SPECIFIC GRAVITY URINE 1.026 (1.005-1.030); UROBILINOGEN URINE 0.2 E.U./dL (0.2-1.0)
[2025-09-29 06:59] LABS: *AMPHETAMINES SCREEN URINE NEGATIVE (NEGATIVE); *BARBITURATES SCREEN URINE NEGATIVE (NEGATIVE); *BENZODIAZEPINES SCREEN URINE NEGATIVE (NEGATIVE); *COCAINE SCREEN URINE NEGATIVE (NEGATIVE); CANNABINOID URINE SCREEN PRESUMPTIVE POSITIVE (NEGATIVE); ECSTASY MDMA SCREEN URINE NEGATIVE (NEGATIVE); METHADONE URINE SCREEN NEGATIVE (NEGATIVE); OPIATES URINE SCREEN PRESUMPTIVE POSITIVE (NEGATIVE); PHENCYCLIDINE URINE SCREEN NEGATIVE (NEGATIVE)
[2025-09-29 08:00] VITALS: BP 112/76; PULSE 85; RESP 18; TEMP 36.6; O2SAT 99
[2025-09-29 09:47] LABS: CREATININE 0.8 mg/dL (0.6-1.3); UREA NITROGEN BLOOD 14 mg/dL (9-23)
[2025-09-29 09:56] LABS: BASOPHILS % 0.6 % (0.0-2.0); EOSINOPHILS % 7.4 % (0.0-5.0); HEMATOCRIT. 35.7 % (42.0-52.0); HEMOGLOBIN. 11.8 g/dL (14.0-18.0); LYMPHOCYTES % 19.6 % (20.0-50.0); MEAN PLATELET VOLUME 10.4 fl (7.4-10.4); MONOCYTES % 9.2 % (2.0-8.0); NEUTROPHILS % 63.2 % (40.0-76.0); PLATELET 121 x1000/uL (130-400); RED BLOOD CELL COUNT 4.13 mill/uL (4.7-6.1); RED CELL DISTRIBUTION WIDTH 17.0 % (11.6-14.6)
[2025-09-29 16:00] VITALS: BP 114/80; PULSE 84; RESP 16; TEMP 36.3; O2SAT 99
[2025-09-29 20:00] VITALS: BP 132/72; PULSE 83; RESP 17; TEMP 36.3; O2SAT 99
[2025-09-30] VITALS: BP 138/84; PULSE 79; RESP 19; TEMP 36.4; O2SAT 98
[2025-09-30 04:00] VITALS: BP 110/76; PULSE 63; RESP 16; TEMP 36.3; O2SAT 99
[2025-09-30] MEDS ORDERED: THIA100T72 PO (06:52)
[2025-09-30] MEDS ORDERED: LOSA25TA26 MT (06:52)
[2025-09-30] MEDS ORDERED: AMLO10TA80 MT (06:52)
[2025-09-30] MEDS ORDERED: SUCR1TAB30 MT (06:52)
[2025-09-30] MEDS ORDERED: OMEP20CA14 MT (06:52)
[2025-09-30] MEDS ORDERED: TRAZ-251 MT (06:52)
[2025-09-30] MEDS ORDERED: HYDR45CR12 TP (06:52)
[2025-09-30] MEDS ORDERED: KEPP500 MT (06:52)
[2025-09-30 08:00] VITALS: BP 135/58; PULSE 90; RESP 20; TEMP 36.3; O2SAT 94
[2025-09-30] MEDS ORDERED: DIPH25CA83 MT (08:42)
[2025-09-30 11:17] LABS: BASOPHILS % 0.6 % (0.0-2.0); EOSINOPHILS % 4.5 % (0.0-5.0); HEMATOCRIT. 37.6 % (42.0-52.0); HEMOGLOBIN. 12.4 g/dL (14.0-18.0); LYMPHOCYTES % 15.1 % (20.0-50.0); MEAN PLATELET VOLUME 9.5 fl (7.4-10.4); MONOCYTES % 9.3 % (2.0-8.0); NEUTROPHILS % 70.5 % (40.0-76.0); PLATELET 131 x1000/uL (130-400); RED BLOOD CELL COUNT 4.35 mill/uL (4.7-6.1); RED CELL DISTRIBUTION WIDTH 16.4 % (11.6-14.6)
[2025-09-30 11:21] LABS: CREATININE 0.7 mg/dL (0.6-1.3)
[2025-09-30 11:22] LABS: UREA NITROGEN BLOOD 14 mg/dL (9-23)
[2025-09-30 12:00] VITALS: BP 144/84; PULSE 74; RESP 20; TEMP 36.8; O2SAT 97
[2025-09-30 16:00] VITALS: BP 125/93; PULSE 72; RESP 20; TEMP 35.8; O2SAT 95
[2025-09-30] MEDS: HYDROCORTISONE 2.5% CREAM 28GM TOP SCH (17:14)
[2025-09-30 20:00] VITALS: BP 125/82; PULSE 77; RESP 17; TEMP 36.3; O2SAT 98
[2025-10-01] VITALS: RESP 18; TEMP 36.3; O2SAT 97
[2025-10-01 04:00] VITALS: BP 144/76; PULSE 70; RESP 18; TEMP 36.7; O2SAT 100
[2025-10-01 08:00] VITALS: BP 132/74; PULSE 77; RESP 17; TEMP 36.3; O2SAT 97
[2025-10-01] MEDS: DIPHENHYDRAMINE 25MG CAPSULE PO PRN (09:59)
[2025-10-01 12:00] VITALS: BP 127/77; PULSE 78; RESP 18; TEMP 36.4; O2SAT 96
[2025-10-01 16:00] VITALS: BP 128/76; PULSE 76; RESP 19; TEMP 36.6; O2SAT 99
[2025-10-01 17:16] VITALS: BP 128/76; PULSE 76; RESP 19; TEMP 97.6
== END 2025-10-01 17:38 | disposition home or self-care (01) | DRG 385 ==
LOC: ER 15:12 → 8EST 18:27 → EDBEDREQTM 18:30 → EDBEDREQ 18:30 → ENRESERV 19:52 → 8EST 09-27 03:42
PROVIDERS: ADMIT Internal Medicine; ATTEND Internal Medicine
DX: L23.9 Allergic contact dermatitis, unspecified cause (principal); D69.6 Thrombocytopenia, unspecified; K74.60 Unspecified cirrhosis of liver; Z59.00 Homelessness unspecified; D64.9 Anemia, unspecified; F11.20 Opioid dependence, uncomplicated; B86 Scabies; G40.909 Epilepsy, unspecified, not intractable, without status epilepticus; I10 Essential (primary) hypertension; Z88.6 Allergy status to analgesic agent; F17.210 Nicotine dependence, cigarettes, uncomplicated; F41.9 Anxiety disorder, unspecified; M48.9 Spondylopathy, unspecified; Z79.899 Other long term (current) drug therapy; Z86.73 Personal history of transient ischemic attack (TIA), and cerebral infarction without residual deficits
CPT/HCPCS: 36415; 80048; 80076; 80305; 81003; 83605; 85025; 96365; 96375; 99285; J0133; J1885; J2270; J7030; J7060; Q0163